=== PATIENT | male | born 1950 | race Caucasian/White ===

== ENCOUNTER 2020-02-22 13:28 | Outpatient (CLI) | payer MEDICARE, SELFPAY ==
[2020-02-22 15:06] LABS: Alanine Aminotransferase 30 U/L (16-63); Albumin Level 3.8 g/dL (3.4-5.0); Alkaline Phosphatase 117 U/L (46-116); Anion Gap 13.7 mmol/L (7-16); Aspartate Amino Transferase 28 U/L (15-37); Bilirubin,Total 0.5 mg/dL (0.00-1.00); Blood Urea Nitrogen 8 mg/dL (7-18); Calcium 9.3 mg/dL (8.5-10.1); Carbon Dioxide 27 mmol/L (21-32); Chloride 97 mmol/L (98-108); Estimated Glomerular Filt Rate > 60; Glucose 106 mg/dL (70-99); Osmolality Calculated 274 mOsm/kg (285-295); Potassium 4.7 mmol/L (3.5-5.1); Sodium 133 mmol/L (136-145); Total Protein 7.4 g/dL (6.4-8.2)
[2020-02-22 15:20] LABS: Prostate Specific Antigen < 0.1 ng/mL (< OR = 4.0)
== END 2020-02-22 13:29 | disposition home or self-care (01) ==
LOC: CHSLAB 13:31
PROVIDERS: PCP Nurse Practitioner Family; Visit Provider Urology
DX: C61 Malignant neoplasm of prostate (principal)
CPT/HCPCS: 36415; 80053; 84153

== ENCOUNTER 2020-05-21 11:25 | Outpatient (CLI) | payer MEDICARE, SELFPAY ==
[2020-05-21 12:37] LABS: Alanine Aminotransferase 35 U/L (16-63); Albumin Level 1.8 g/dL (3.4-5.0); Alkaline Phosphatase 91 U/L (46-116); Anion Gap 8 mmol/L (8-16); Aspartate Amino Transferase 45 U/L (15-37); Bilirubin,Total 0.3 mg/dL (0.00-1.00); Blood Urea Nitrogen 6 mg/dL (7-18); Carbon Dioxide 27 mmol/L (21-32); Chloride 101 mmol/L (98-108); Estimated Glomerular Filt Rate > 60; Glucose 99 mg/dL (70-99); Osmolality Calculated 279 mOsm/kg (285-295); Potassium 4.7 mmol/L (3.5-5.1); Sodium 136 mmol/L (136-145); Total Protein 6.9 g/dL (6.4-8.2)
[2020-05-21 13:00] LABS: Prostate Specific Antigen < 0.1 ng/mL (< OR = 4.0)
== END 2020-05-21 11:26 | disposition home or self-care (01) ==
PROVIDERS: PCP Nurse Practitioner Family; Visit Provider Urology
DX: C61 Malignant neoplasm of prostate (principal)
CPT/HCPCS: 36415; 80053; 84153

== ENCOUNTER 2020-06-20 09:45 | Outpatient (CLI) | payer MEDICARE, SELFPAY ==
[2020-06-20 09:55] LABS: Hematocrit 44.4 % (37.0-46.0); Hemoglobin 14.7 g/dL (12.4-15.3); Mean Corpuscular HGB Conc 33.1 g/dL (32.0-36.0); Mean Corpuscular Hemoglobin 35.7 pg (27.0-31.0); Mean Corpuscular Volume 107.8 fL (78.0-102.0); Platelet Count Result 279 K/mm3 (150-420); Red Blood Count 4.12 M/mm3 (4.70-6.10); Red Cell Distribution Width 12.5 % (11.6-14.4); White Blood Count 6.1 K/mm3 (4.8-10.8)
[2020-06-20 11:03] LABS: Cholesterol 212 mg/dL (0-200); HDL Direct 45 mg/dL (40-60); LDL Cholesterol Calculated 139 mg/dL (<130); Triglycerides 142 mg/dL (0-150)
[2020-06-24 13:54] LABS: Levetiracetam Keppra 15.4 mcg/mL (12.0-46.0)
== END 2020-06-20 09:46 | disposition home or self-care (01) ==
LOC: CHSLAB 09:49
PROVIDERS: PCP Nurse Practitioner Family; Visit Provider Nurse Practitioner Family
DX: G40.909 Epilepsy, unspecified, not intractable, without status epilepticus (principal); I10 Essential (primary) hypertension; Z13.6 Encounter for screening for cardiovascular disorders
CPT/HCPCS: 36415; 80061; 80177; 85027

== ENCOUNTER 2020-08-20 10:52 | Outpatient (CLI) | payer MEDICARE, SELFPAY ==
[2020-08-20 12:51] LABS: Alanine Aminotransferase 30 U/L (16-63); Albumin Level 4.1 g/dL (3.4-5.0); Alkaline Phosphatase 111 U/L (46-116); Anion Gap 6 mmol/L (8-16); Aspartate Amino Transferase 19 U/L (15-37); Bilirubin,Total 0.4 mg/dL (0.00-1.00); Blood Urea Nitrogen 8 mg/dL (7-18); Calcium 9.5 mg/dL (8.5-10.1); Carbon Dioxide 28 mmol/L (21-32); Chloride 102 mmol/L (98-108); Estimated Glomerular Filt Rate > 60; Glucose 98 mg/dL (70-99); Osmolality Calculated 280 mOsm/kg (285-295); Potassium 4.8 mmol/L (3.5-5.1); Sodium 136 mmol/L (136-145); Total Protein 7.2 g/dL (6.4-8.2)
[2020-08-20 13:20] LABS: Prostate Specific Antigen < 0.1 ng/mL (< OR = 4.0)
== END 2020-08-20 10:53 | disposition home or self-care (01) ==
LOC: CHSLAB 10:54
PROVIDERS: PCP Nurse Practitioner Family; Visit Provider Urology
DX: C61 Malignant neoplasm of prostate (principal)
CPT/HCPCS: 36415; 80053; 84153

== ENCOUNTER 2020-11-19 11:10 | Outpatient (CLI) | payer MEDICARE, SELFPAY ==
[2020-11-19 12:17] LABS: Alanine Aminotransferase 40 U/L (16-63); Albumin Level 4.2 g/dL (3.4-5.0); Alkaline Phosphatase 125 U/L (46-116); Anion Gap 10 mmol/L (8-16); Aspartate Amino Transferase 25 U/L (15-37); Bilirubin,Total 0.6 mg/dL (0.00-1.00); Blood Urea Nitrogen 10 mg/dL (7-18); Calcium 9.3 mg/dL (8.5-10.1); Carbon Dioxide 28 mmol/L (21-32); Chloride 98 mmol/L (98-108); Estimated Glomerular Filt Rate > 60; Glucose 102 mg/dL (70-99); Osmolality Calculated 281 mOsm/kg (285-295); Potassium 4.6 mmol/L (3.5-5.1); Sodium 136 mmol/L (136-145); Total Protein 7.3 g/dL (6.4-8.2)
[2020-11-19 12:28] LABS: Prostate Specific Antigen < 0.1 ng/mL (< OR = 4.0)
== END 2020-11-19 11:11 | disposition home or self-care (01) ==
LOC: CHSLAB 11:12
PROVIDERS: PCP Nurse Practitioner Family; Visit Provider Urology
DX: C61 Malignant neoplasm of prostate (principal)
CPT/HCPCS: 36415; 80053; 84153

== ENCOUNTER 2021-02-17 16:37 | Outpatient (CLI) | payer MEDICARE, SELFPAY ==
[2021-02-17 18:14] LABS: Alanine Aminotransferase 25 U/L (16-63); Albumin Level 4.1 g/dL (3.4-5.0); Alkaline Phosphatase 138 U/L (46-116); Anion Gap 17 mmol/L (8-16); Aspartate Amino Transferase 18 U/L (15-37); Bilirubin,Total 0.6 mg/dL (0.00-1.00); Blood Urea Nitrogen 11 mg/dL (7-18); Calcium 9.7 mg/dL (8.5-10.1); Carbon Dioxide 23 mmol/L (21-32); Chloride 95 mmol/L (98-108); Estimated Glomerular Filt Rate > 60; Glucose 97 mg/dL (70-99); Osmolality Calculated 279 mOsm/kg (285-295); Potassium 4.3 mmol/L (3.5-5.1); Sodium 135 mmol/L (136-145); Total Protein 7.3 g/dL (6.4-8.2)
[2021-02-17 18:18] LABS: Prostate Specific Antigen < 0.1 ng/mL (< OR = 4.0)
== END 2021-02-17 16:38 | disposition home or self-care (01) ==
LOC: CHSLAB 16:42
PROVIDERS: PCP Nurse Practitioner Family; Visit Provider Urology
DX: C61 Malignant neoplasm of prostate (principal)
CPT/HCPCS: 36415; 80053; 84153

== ENCOUNTER 2021-06-02 21:28 | Emergency (ER) | payer MEDICARE, SELFPAY ==
--- NOTE | ~2021-06-02 | XR_ITS ---
EXAMINATION: XR chest 1V EXAM DATE: 06/02/2021 22:32 INDICATION: vomiting, dyspnea/weakness . TECHNIQUE: Portable AP frontal chest x-ray was obtained. Comparison is made to prior examination from 2004. FINDINGS: Lung bases are poorly penetrated, difficult to determine if this is from developing airspac e disease, abdominal and/or epicardial fat.. Probable sizable gastroesophageal hiatal hernia. No pneu mothorax or pleural effusion. Mild cardiomegaly. IMPRESSION: 1. Lung bases are poorly penetrated, difficult to determine if this is from developing airspace dise ase, abdominal and/or epicardial fat. 2. Sizable gastroesophageal hiatal hernia. Reviewed, dictated and finalized at location . IMPRESSION: 1. Lung bases are poorly penetrated, difficult to determine if this is from de veloping airspace disease, abdominal and/or epicardial fat. 2. Sizable gastroesophageal hiatal hernia.
--- NOTE | ~2021-06-02 | CT_ITS ---
EXAMINATION: CT brain wo con EXAM DATE: 06/02/2021 22:32 INDICATION: AMS, vomiting weakness/dizziness with AMS. hx of stroke. TECHNIQUE: Spiral CT of the head was performed without contrast. Axial, coronal and sagittal images were reviewed. The dose-length product (DLP) for this examination was 681.00 mGy-cm. The exposure w as tailored according to patient size, and iterative re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 (ASIR) was used as additional dos e reduction technique. Comparison is made to prior examination from 08/10/2018. FINDINGS: There is moderate size old right temporoparietal lobe infarction unchanged. There is no acu te intraparenchymal hemorrhage. No evidence of intraparenchymal brain mass lesion. No evidence of a cute infarction. Please note that initial head CT has limited sensitivity for small or acute infarct ions. There is mild periventricular and subcortical hypodensity, nonspecific but probably related to small vessel ischemic disease. There is moderate prominence of the sulci and ventricles related to cerebral atrophy. There is intracranial carotid arteriosclerosis. There are no extra-axial collect ions. There is no mass effect or midline shift. The orbits are unremarkable. Soft tissue is unrema rkable. The visualized sinuses and mastoid air cells are well aerated. IMPRESSION: 1. No acute intracranial findings. 2. Chronic age related findings. 3. 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 Reviewed, dictated and finalized at location G.
[2021-06-02 21:30] VITALS: BP 98/52; PULSE 72; RESP 20; O2SAT 98
--- NOTE | 2021-06-02 21:37 | ED.NAVMDI ---
HPI - Nausea/Vomiting/Diarrhea General Chief complaint: Nausea/Vomiting/Diarrhea Stated complaint: AMB Time Seen by Provider: 06/02/21 21:32 Source: patient and EMS Mode of arrival: EMS Limitations: altered mental status and clinical condition History of Present Illness HPI Narrative: 70-year-old man with a history of daily alcohol use, hypertension, seizure disorder and prostatic cancer comes in today by EMS complaining of vomiting that started approximately 3 hours ago. Patient states he has some pain in his abdomen but can not be more specific. He denies chest pain,, cough, cold symptoms, fever and diarrhea. Patient states that his went for surgery today and that when she has gone he gets nervous and has vomiting. MD elicited complaint: nausea, vomiting and abdominal pain Pertinent past history: alcohol abuse Onset (ago): hour(s) (3) Description of vomiting: food contents and watery Associated nausea: Yes Associated abdominal pain: Yes Severity: moderate Quality: other ( nausea ) Exacerbating factors: none Relieving factors: none Associated symptoms: shortness of breath and anxiety Treatment prior to arrival: other (Zofran 4 IV) Related Data Home Medications Medication Instructions Recorded Confirmed aspirin 81 mg tablet,delayed 81 mg PO DAILY 06/19/20 06/02/21 release clopidogrel 75 mg PO DAILY 06/02/21 06/02/21 levetiracetam 500 mg PO BID 06/02/21 06/02/21 lisinopril 20 mg PO DAILY 06/02/21 06/02/21 Allergies Allergy/AdvReac Type Severity Reaction Status Date / Time No Known Allergies Allergy Mild Verified 06/02/21 21:36 Review of Systems Review of Systems: All systems reviewed & are unremarkable except as noted in HPI and below Constitutional: Constitutional: Denies chills and Denies fever(s) Eyes: Eyes: Denies change in vision and Denies photophobia ENT: Denies nasal congestion and Denies sore throat Cardiovascular: Cardiovascular: Denies chest pain and Denies radiating jaw, neck or arm pain Respiratory: Respiratory: Denies cough and Reports dyspnea Gastrointestinal: Gastrointestinal: Reports abdominal pain, Denies diarrhea, Reports nausea and Reports vomiting Genitourinary: Genitourinary: Denies dysuria and Denies urinary frequency Musculoskeletal: Musculoskeletal: Denies back pain, Reports arthralgias (hips) and Denies joint swelling Neurologic: Denies vertigo, Denies dizziness, Denies syncope, Denies focal weakness, Denies numbness and Reports weakness Hematologic/Lymphatic: Hematologic/Lymphatic: Denies easy bleeding and Denies easy bruising Allergic/Immunologic: Allergic/Immunologic: Denies lip swelling and Denies throat swelling [facility] Past Medical History Medical History Elevated PSA HTN (hypertension) Overweight Psoriasis Seizure disorder Surgical History Surgical History History of hernia repair Family History Family History Other Family history of malignant neoplasm Social History Social History (Updated 06/02/21 @ 23:54 by Angel Lee MD) Smoking status: Former smoker Tobacco type: cigarettes Smoking end date: 06/29/01 Alcohol intake: current Alcohol use details: Daily Substance use: never 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 HENMT: Head: normal to inspection Ears: Abnormal EAC present other (EACs scaly bilaterally) Face and sinus: normal facial exam Mouth: Yes moist mucous membranes Throat: posterior oropharynx normal Eyes: Cornea: corneas normal Pupils: Equal, round and reactive pupils present EOM: EOMs intact bilaterally Resp: Effort & Inspectio
--- NOTE | 2021-06-02 21:41 | ECG_ITS ---
Measurements Intervals [place] Rate: 70 P: [place]: 0 QRS: 10 QRSD: 107 T: 44 QT: 413 QTc: 446 Interpretive Statements SINUS RHYTHM LOW QRS VOLTAGE IN PRECORDIAL LEADS INCOMPLETE RIGHT BUNDLE BRANCH BLOCK BASELINE ARTIFACT- I, II, III, AVR, AVL, AVF BORDERLINE ECG Electronically Signed On 06-03-2021 8:22:49 CDT by Soren Hanson D.O.
[2021-06-02] MEDS: PROCHLORPERAZINE EDISYLATE 10 MG/2 ML VIAL IV PUSH (21:51)
[2021-06-02 22:04] LABS: Basophils Absolute Auto 0.04 K/mm3 (0.00-0.10); Basophils Percent Auto 0.5 % (0.0-1.0); Eosinophils Absolute Auto 0.13 K/mm3 (0.02-0.50); Eosinophils Percent Auto 1.7 % (1.0-6.0); Hematocrit 34.4 % (37.0-46.0); Hemoglobin 11.8 g/dL (12.4-15.3); Immature Granulocyte Absolute 0.06 K/mm3 (0.00-0.00); Immature Granulocyte Percent A 0.8 % (0.0-0.0); Lymphocytes Absolute Auto 1.95 K/mm3 (1.10-4.50); Lymphocytes Percent Auto 25.2 % (18.0-42.0); Mean Corpuscular HGB Conc 34.3 g/dL (32.0-36.0); Mean Corpuscular Hemoglobin 35.3 pg (27.0-31.0); Mean Platelet Volume 9.3 fl (8.7-11.0); Monocytes Percent Auto 7.8 % (2.0-11.0); Platelet Count Result 329 K/mm3 (150-420); Red Blood Count 3.34 M/mm3 (4.70-6.10); Red Cell Distribution Width 12.7 % (11.6-14.4); White Blood Count 7.7 K/mm3 (4.8-10.8)
[2021-06-02] MEDS: THIAMINE HCL INJ 100 MG, FOLIC ACID INJ 1 MG, MULTIVITAMINS-12 INJ VIAL 1 5 ML, MULTIVI... 500 MG IV CONT (22:05)
[2021-06-02 22:19] LABS: INR 0.9; Partial Thromboplastin Time 24.1 SEC (23.90-30.70)
[2021-06-02 22:27] LABS: Lactic Acid Reflex 4.5 mmol/L (0.4-2.0)
[2021-06-02 22:31] LABS: Alanine Aminotransferase 25 U/L (16-63); Albumin Level 3.8 g/dL (3.4-5.0); Alkaline Phosphatase 90 U/L (46-116); Anion Gap 19 mmol/L (8-16); Aspartate Amino Transferase 14 U/L (15-37); Bilirubin,Total 0.3 mg/dL (0.00-1.00); Blood Urea Nitrogen 9 mg/dL (7-18); Calcium 8.7 mg/dL (8.5-10.1); Carbon Dioxide 19 mmol/L (21-32); Chloride 96 mmol/L (98-108); Creatine Kinase 47 U/L (39-308); Estimated CRCL calculation 97 ml/min; Estimated Glomerular Filt Rate > 60; Ethanol 91 mg/dL (0-6); Glucose 113 mg/dL (70-99); Osmolality Calculated 277 mOsm/kg (285-295); Potassium 3.7 mmol/L (3.5-5.1); Sodium 134 mmol/L (136-145); Thyroid Stimulating Hormone 2.61 uIU/mL (0.36-3.74); Total Protein 6.9 g/dL (6.4-8.2); Troponin I 5.1 ng/L (0.00-60.4)
[2021-06-02 22:36] VITALS: PULSE 85
[2021-06-02 22:52] VITALS: BP 117/53; PULSE 70; RESP 20; TEMP 36.1; O2SAT 100
[2021-06-02 23:07] LABS: Add Urine Microscopic? YES; Appearance Urine Clear (Clear); Bilirubin Urine Negative (Negative); Blood Urine Negative (Negative); Color Urine Yellow (Yellow); Glucose Urine UA Negative (Negative); Ketones Urine 2+ (Negative); Leukocyte Esterase Ur Negative LEU/UL (Negative); Nitrate Urine Negative (Negative); Protein Urine Negative (Negative); Specific Grav Ur 1.025 (1.010-1.020); Urobilinogen Urine 0.2 mg/dL (0.2-1.0)
[2021-06-02 23:13] LABS: Bacteria Urine Trace /hpf; Mucus Urine Moderate /lpf; RBC Urine 0-2 /hpf (0-2); Squamous Epithelial Cell Urine Rare /hpf (Few); WBC Urine 0-3 /hpf (0-3)
[2021-06-02 23:14] LABS: Amphetamine Screen Urine Negative (Negative); Barbiturate Screen Urine Negative (Negative); Benzodiazepines Screen Urine Negative (Negative); Cannabinoid Screen Urine Negative (Negative); Cocaine Screen Urine Negative (Negative); Methadone Screen Urine Negative (Negative); Opiate Screen Urine Negative (Negative); Phencyclidine Screen Urine Negative (Negative)
[2021-06-02 23:45] LABS: SARS-CoV-2 RNA PCR Negative (Negative)
[2021-06-03] VITALS: BP 108/58; PULSE 68; RESP 18; TEMP 35.5; O2SAT 98
[2021-06-03 01:01] LABS: Reflex Lactic Acid Yes or No Add Lactic
== END 2021-06-03 00:21 | disposition home or self-care (01) ==
PROVIDERS: Emergency Provider Emergency Medicine; PCP Nurse Practitioner Family
DX: F41.9 Anxiety disorder, unspecified (principal); F10.20 Alcohol dependence, uncomplicated; Z87.891 Personal history of nicotine dependence; I10 Essential (primary) hypertension; Z20.822 Contact with and (suspected) exposure to COVID-19
CPT/HCPCS: 36415; 70450; 71045; 80053; 80307; 81001; 82550; 83605; 84443; 84484; 85025; 85610; 85730; 87040; 93005; 96365; 96366; 96375; 99283; 99284; C9803; J0780; J3411; J3475; J7120; U0003; U0005

== ENCOUNTER 2021-09-23 16:35 | Outpatient (CLI) | payer MEDICARE, SELFPAY ==
[2021-09-23 17:31] LABS: Alanine Aminotransferase 24 U/L (16-63); Alkaline Phosphatase 107 U/L (46-116); Anion Gap 8 mmol/L (8-16); Aspartate Amino Transferase 13 U/L (15-37); Bilirubin,Total 0.4 mg/dL (0.00-1.00); Blood Urea Nitrogen 9 mg/dL (7-18); Carbon Dioxide 29 mmol/L (21-32); Chloride 95 mmol/L (98-108); Estimated Glomerular Filt Rate > 60; Glucose 96 mg/dL (70-99); Osmolality Calculated 272 mOsm/kg (285-295); Potassium 4.2 mmol/L (3.5-5.1); Sodium 132 mmol/L (136-145); Total Protein 7.2 g/dL (6.4-8.2)
[2021-09-23 17:32] LABS: Prostate Specific Antigen < 0.1 ng/mL (< OR = 4.0)
== END 2021-09-23 16:36 | disposition home or self-care (01) ==
LOC: CHSLAB 16:37
PROVIDERS: PCP Nurse Practitioner Family; Visit Provider Urology
DX: C61 Malignant neoplasm of prostate (principal)
CPT/HCPCS: 36415; 80053; 84153

== ENCOUNTER 2021-11-06 12:40 | Outpatient (CLI) | payer MEDICARE, SELFPAY ==
[2021-11-06 12:55] LABS: Basophils Absolute Auto 0.02 K/mm3 (0.00-0.10); Basophils Percent Auto 0.2 % (0.0-1.0); Eosinophils Absolute Auto 0.12 K/mm3 (0.02-0.50); Eosinophils Percent Auto 1.4 % (1.0-6.0); Hematocrit 39.3 % (37.0-46.0); Hemoglobin 12.8 g/dL (12.4-15.3); Immature Granulocyte Absolute 0.04 K/mm3 (0.00-0.00); Immature Granulocyte Percent A 0.5 % (0.0-0.0); Lymphocytes Absolute Auto 1.18 K/mm3 (1.10-4.50); Lymphocytes Percent Auto 13.3 % (18.0-42.0); Mean Corpuscular HGB Conc 32.6 g/dL (32.0-36.0); Mean Corpuscular Hemoglobin 34.8 pg (27.0-31.0); Mean Corpuscular Volume 106.8 fL (78.0-102.0); Mean Platelet Volume 8.9 fl (8.7-11.0); Monocytes Absolute Auto 0.67 K/mm3 (0.10-0.90); Monocytes Percent Auto 7.6 % (2.0-11.0); Neutrophils Absolute Auto 6.8 K/mm3 (1.7-7.2); Platelet Count Result 361 K/mm3 (150-420); Red Blood Count 3.68 M/mm3 (4.70-6.10); Red Cell Distribution Width 12.5 % (11.6-14.4); White Blood Count 8.9 K/mm3 (4.8-10.8)
[2021-11-06 13:04] LABS: Add Urine Microscopic? YES; Appearance Urine Clear (Clear); Bilirubin Urine Negative (Negative); Blood Urine Negative (Negative); Color Urine Yellow (Yellow); Glucose Urine UA Negative (Negative); Ketones Urine Trace (Negative); Leukocyte Esterase Ur Negative (Negative); Nitrate Urine Negative (Negative); Protein Urine Negative (Negative); Specific Grav Ur >= 1.030 (1.010-1.020); Urobilinogen Urine 0.2 mg/dL (0.2-1.0); pH Urine 5.5 (5.0-8.0)
[2021-11-06 13:14] LABS: Bacteria Urine Trace /hpf; Mucus Urine Rare /lpf; RBC Urine None seen /hpf (0-2); WBC Urine None seen /hpf (0-3)
[2021-11-06 13:22] LABS: Alanine Aminotransferase 21 U/L (16-63); Albumin Level 4.1 g/dL (3.4-5.0); Alkaline Phosphatase 124 U/L (46-116); Anion Gap 11 mmol/L (8-16); Aspartate Amino Transferase 14 U/L (15-37); Bilirubin,Total 0.3 mg/dL (0.00-1.00); Blood Urea Nitrogen 10 mg/dL (7-18); Calcium 9.1 mg/dL (8.5-10.1); Carbon Dioxide 27 mmol/L (21-32); Chloride 98 mmol/L (98-108); Estimated Glomerular Filt Rate > 60; Glucose 101 mg/dL (70-99); Osmolality Calculated 281 mOsm/kg (285-295); Potassium 4.7 mmol/L (3.5-5.1); Sodium 136 mmol/L (136-145); Total Protein 7.2 g/dL (6.4-8.2)
== END 2021-11-06 12:41 | disposition home or self-care (01) ==
LOC: CHSLAB 12:44
PROVIDERS: PCP Nurse Practitioner Family
DX: L40.0 Psoriasis vulgaris (principal)
CPT/HCPCS: 36415; 80053; 81001; 85025

== ENCOUNTER 2022-01-01 12:50 | Outpatient (CLI) | payer MEDICARE, SELFPAY ==
[2022-01-01 13:08] LABS: Add Urine Microscopic? NO; Appearance Urine Clear (Clear); Bilirubin Urine Negative (Negative); Blood Urine Negative (Negative); Color Urine Light Yellow (Yellow); Glucose Urine UA Negative (Negative); Ketones Urine Negative (Negative); Leukocyte Esterase Ur Negative (Negative); Nitrate Urine Negative (Negative); Protein Urine Negative (Negative); Urobilinogen Urine 0.2 mg/dL (0.2-1.0)
[2022-01-01 13:09] LABS: Basophils Absolute Auto 0.06 K/mm3 (0.00-0.10); Basophils Percent Auto 0.8 % (0.0-1.0); Eosinophils Absolute Auto 0.23 K/mm3 (0.02-0.50); Eosinophils Percent Auto 3.1 % (1.0-6.0); Hematocrit 37.4 % (37.0-46.0); Hemoglobin 11.9 g/dL (12.4-15.3); Immature Granulocyte Absolute 0.04 K/mm3 (0.00-0.00); Immature Granulocyte Percent A 0.5 % (0.0-0.0); Lymphocytes Absolute Auto 1.27 K/mm3 (1.10-4.50); Lymphocytes Percent Auto 17.1 % (18.0-42.0); Mean Corpuscular HGB Conc 31.8 g/dL (32.0-36.0); Mean Corpuscular Hemoglobin 34.2 pg (27.0-31.0); Mean Corpuscular Volume 107.5 fL (78.0-102.0); Mean Platelet Volume 9.1 fl (8.7-11.0); Monocytes Absolute Auto 0.71 K/mm3 (0.10-0.90); Monocytes Percent Auto 9.6 % (2.0-11.0); Neutrophils Absolute Auto 5.1 K/mm3 (1.7-7.2); Neutrophils Percent Auto 68.9 % (50.0-70.0); Platelet Count Result 361 K/mm3 (150-420); Red Blood Count 3.48 M/mm3 (4.70-6.10); Red Cell Distribution Width 13.4 % (11.6-14.4); White Blood Count 7.4 K/mm3 (4.8-10.8)
[2022-01-01 13:28] LABS: Alanine Aminotransferase 18 U/L (16-63); Alkaline Phosphatase 123 U/L (46-116); Anion Gap 6 mmol/L (8-16); Aspartate Amino Transferase 28 U/L (15-37); Bilirubin,Total 0.4 mg/dL (0.00-1.00); Blood Urea Nitrogen 8 mg/dL (7-18); Calcium 9.3 mg/dL (8.5-10.1); Carbon Dioxide 28 mmol/L (21-32); Chloride 100 mmol/L (98-108); Estimated Glomerular Filt Rate > 60; Glucose 100 mg/dL (70-99); Osmolality Calculated 276 mOsm/kg (285-295); Potassium 4.6 mmol/L (3.5-5.1); Sodium 134 mmol/L (136-145); Total Protein 7.6 g/dL (6.4-8.2)
== END 2022-01-01 12:51 | disposition home or self-care (01) ==
LOC: CHSLAB 12:54
PROVIDERS: PCP Nurse Practitioner Family
DX: L40.9 Psoriasis, unspecified (principal)
CPT/HCPCS: 36415; 80053; 81003; 85025

== ENCOUNTER 2022-01-18 12:28 | Outpatient (CLI) | payer MEDICARE, SELFPAY ==
--- NOTE | 2022-01-18 12:35 | ECHO_ITS ---
Patient Info Name: Malcolm Patel Age: 71 years : 1950 Gender: Male Ht: 70 in Wt: 220 lbs BSA: 2.25 m2 HR: 80 bpm BP: 142 / 85 mmHg Heart Rhythm: Sinus Rhythm Technical Quality: Fair Exam Date: 01/18/2022 12:21 PM Exam Location: [facility] Patient Status: Outpatient Admit Date: 01/18/2022 Staff Ordering Physician: Korin Guillen NP Vp Clinical: Celia Don RDCS Attending Provider: Korin Guillen NP Referring Physician: Mindy LANCASTER; Exam Type: CA echo doppler color flow Study Info Indications - Localized edema Complete two-dimensional, color flow and Doppler transthoracic echocardiogram is performed. Summary 1. Complete two-dimensional, color flow and Doppler transthoracic echocardiogram is performed. 2. Left ventricular chamber dimension is normal. 3. Left ventricular systolic function is normal, estimated at 55-60%. 4. The left ventricular diastolic function is grade I diastolic dysfunction. 5. E/e' 9 is minimally elevated. 6. The aortic valve is not well visualized. Cannot determine number of aortic valve leaflets. 7. There is moderate aortic valve sclerosis. 8. There is moderate aortic valve stenosis based on a peak velocity of 280 cm/s, mean gradient of 12 mmHg, and aortic valve area of 1.4 cm2. 9. The mitral valve has mildly calcified annulus. 10. No pulmonary hypertension, estimated pulmonary arterial systolic pressure is 26 mmHg. 11. There is trivial pericardial effusion. Left Ventricle E/e' 9 is minimally elevated. Left ventricular chamber dimension is normal. Left ventricular systolic function is normal, estimated at 55-60%. The left ventricular diastolic function is grade I diastolic dysfunction. Right Ventricle Right ventricular systolic function is normal and with normal TAPSE 3.4 cm. Right ventricular chamber dimension is normal. Left Atria Left atrial chamber dimension is normal. Right Atria Right atrial chamber dimension is normal. Aortic Valve The aortic valve is not well visualized. Cannot determine number of aortic valve leaflets. There is moderate aortic valve stenosis based on a peak velocity of 280 cm/s, mean gradient of 12 mmHg, and aortic valve area of 1.4 cm2. There is moderate aortic valve sclerosis. There is no aortic valve regurgitation. Pulmonic Valve There is no pulmonic regurgitation. Mitral Valve The mitral valve has mildly calcified annulus. There is no mitral valve stenosis. There is no mitral valve regurgitation. Tricuspid Valve There is no tricuspid valve regurgitation. No pulmonary hypertension, estimated pulmonary arterial systolic pressure is 26 mmHg. Pericardium/Pleural There is trivial pericardial effusion. Inferior Vena Cava Normal inferior vena cava with >50% collapse upon inspiration consistent with normal right atrial pressure, 5 mmHg. Aorta The aortic root size at the sinus of Valsalva is not well visualized. Left Ventricular Outflow Tract Name Value Normal LVOT 2D LVOT Diameter 2.0 cm LVOT Doppler LVOT Peak Velocity 98 cm/s LVOT Peak Gradient
== END 2022-01-18 12:29 | disposition home or self-care (01) ==
LOC: CHSIMG 12:29
PROVIDERS: PCP Nurse Practitioner Family; Visit Provider Nurse Practitioner Family
DX: R94.31 Abnormal electrocardiogram [ECG] [EKG] (principal); R60.0 Localized edema; Z86.73 Personal history of transient ischemic attack (TIA), and cerebral infarction without residual deficits; I35.0 Nonrheumatic aortic (valve) stenosis
CPT/HCPCS: 93306

== ENCOUNTER 2022-01-19 08:21 | Outpatient (CLI) | payer MEDICARE, SELFPAY ==
[2022-01-19 08:54] LABS: Cholesterol 146 mg/dL (0-200); HDL Direct 50 mg/dL (40-60); LDL Cholesterol Calculated 76 mg/dL (<130); Triglycerides 99 mg/dL (0-150)
== END 2022-01-19 08:22 | disposition home or self-care (01) ==
LOC: CHSLAB 08:24
PROVIDERS: PCP Nurse Practitioner Family; Visit Provider Nurse Practitioner Family
DX: E78.5 Hyperlipidemia, unspecified (principal)
CPT/HCPCS: 36415; 80061

== ENCOUNTER 2022-01-22 15:06 | Outpatient (CLI) | payer MEDICARE, SELFPAY ==
[2022-01-22 15:25] LABS: Basophils Absolute Auto 0.03 K/mm3 (0.00-0.10); Basophils Percent Auto 0.4 % (0.0-1.0); Eosinophils Absolute Auto 0.18 K/mm3 (0.02-0.50); Eosinophils Percent Auto 2.3 % (1.0-6.0); Hematocrit 34.9 % (37.0-46.0); Hemoglobin 11.3 g/dL (12.4-15.3); Immature Granulocyte Absolute 0.01 K/mm3 (0.00-0.00); Immature Granulocyte Percent A 0.1 % (0.0-0.0); Lymphocytes Absolute Auto 1.29 K/mm3 (1.10-4.50); Lymphocytes Percent Auto 16.8 % (18.0-42.0); Mean Corpuscular HGB Conc 32.4 g/dL (32.0-36.0); Mean Corpuscular Hemoglobin 34.9 pg (27.0-31.0); Mean Corpuscular Volume 107.7 fL (78.0-102.0); Monocytes Absolute Auto 0.44 K/mm3 (0.10-0.90); Monocytes Percent Auto 5.7 % (2.0-11.0); Neutrophils Absolute Auto 5.7 K/mm3 (1.7-7.2); Neutrophils Percent Auto 74.7 % (50.0-70.0); Platelet Count Result 314 K/mm3 (150-420); Red Blood Count 3.24 M/mm3 (4.70-6.10); Red Cell Distribution Width 12.8 % (11.6-14.4); White Blood Count 7.7 K/mm3 (4.8-10.8)
[2022-01-22 16:38] LABS: Alanine Aminotransferase 26 U/L (16-63); Albumin Level 4.2 g/dL (3.4-5.0); Alkaline Phosphatase 110 U/L (46-116); Anion Gap 7 mmol/L (8-16); Aspartate Amino Transferase 19 U/L (15-37); Bilirubin,Total 0.7 mg/dL (0.00-1.00); Blood Urea Nitrogen 17 mg/dL (7-18); Calcium 9.4 mg/dL (8.5-10.1); Carbon Dioxide 28 mmol/L (21-32); Chloride 99 mmol/L (98-108); Estimated Glomerular Filt Rate > 60; Glucose 89 mg/dL (70-99); Osmolality Calculated 278 mOsm/kg (285-295); Potassium 4.5 mmol/L (3.5-5.1); Sodium 134 mmol/L (136-145); Total Protein 7.2 g/dL (6.4-8.2)
== END 2022-01-22 15:07 | disposition home or self-care (01) ==
LOC: CHSLAB 15:11
PROVIDERS: PCP Nurse Practitioner Family
DX: Z79.899 Other long term (current) drug therapy (principal)
CPT/HCPCS: 36415; 80053; 85025

== ENCOUNTER 2022-03-17 16:35 | Outpatient (CLI) | payer MEDICARE, SELFPAY ==
[2022-03-17 18:16] LABS: Alanine Aminotransferase 16 U/L (16-63); Alkaline Phosphatase 117 U/L (46-116); Anion Gap 8 mmol/L (8-16); Aspartate Amino Transferase 14 U/L (15-37); Bilirubin,Total 0.3 mg/dL (0.00-1.00); Blood Urea Nitrogen 9 mg/dL (7-18); Carbon Dioxide 27 mmol/L (21-32); Chloride 97 mmol/L (98-108); Estimated Glomerular Filt Rate > 60; Glucose 80 mg/dL (70-99); Osmolality Calculated 271 mOsm/kg (285-295); Potassium 4.5 mmol/L (3.5-5.1); Sodium 132 mmol/L (136-145); Total Protein 6.8 g/dL (6.4-8.2)
[2022-03-17 18:26] LABS: Prostate Specific Antigen < 0.1 ng/mL (< OR = 4.0)
== END 2022-03-17 16:36 | disposition home or self-care (01) ==
LOC: CHSLAB 16:38
PROVIDERS: PCP Nurse Practitioner Family; Visit Provider Urology
DX: C61 Malignant neoplasm of prostate (principal)
CPT/HCPCS: 36415; 80053; 84153

== ENCOUNTER 2022-07-22 15:35 | Emergency (ER) | payer MEDICARE, SELFPAY ==
[2022-07-22] VITALS (40 sets, daily range): BP systolic 73–122; BP diastolic 47–101; PULSE 66–87; RESP 10–24; TEMP 36.1–36.8; O2SAT 94–100
--- NOTE | 2022-07-22 15:46 | ED.GENADULT ---
HPI - General Adult General Chief complaint: Syncope Stated complaint: Amb History of Present Illness HPI narrative: Malcolm is a 71M with a PMH of prior CVA w/o deficit, HLD, psoriasis, HTN and elevated PSA that was brought in by EMS with lightheadedness and dizziness as well as nausea and vomiting. He feels very week and is quite pale. Per his he was sitting down, eating pie, when all of a sudden he became very pale and nauseated. They his eyes closed and he may have passed out for a quick second. He then woke and was confused, pale, weak, and dry heaving. He denied any ravi CP or dyspnea. Related Data Home Medications Medication Instructions Recorded Confirmed aspirin 81 mg tablet,delayed 81 mg PO DAILY 06/19/20 08/12/22 release (Adult Aspirin Regimen) folic acid 1 mg tablet 1 mg PO DAILY 07/27/22 08/12/22 pantoprazole 40 mg tablet,delayed 40 mg PO QAM 07/27/22 08/12/22 release thiamine HCl (vitamin B1) 100 mg 100 mg PO DAILY 07/27/22 08/12/22 tablet (Vitamin B-1) Allergies Allergy/AdvReac Type Severity Reaction Status Date / Time No Known Allergies Allergy Mild Verified 08/12/22 17:27 Review of Systems Review of Systems: All systems reviewed & are unremarkable except as noted in HPI and below PMFSH Past Medical History Medical History Abnormal EKG Elevated PSA HTN (hypertension) Overweight Psoriasis Seizure disorder Surgical History Surgical History History of hernia repair Family History Family History Other Family history of malignant neoplasm Social History Social History Smoking status: Former smoker Tobacco type: cigarettes Smoking end date: 06/29/01 Alcohol intake: former Alcohol use details: Daily Substance use: never Lack of Transportation: No Lack of Food: Never True Current Housing: I Have Housing Concerned About Future Housing: No Difficulty Paying Gas/Electric Bills: No Difficulty Paying for Meds: No Currently Unemployed: No Education: High School Diploma/GED Difficulty w/ Childcare or Family Care: No 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, 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, 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 Gender identity (if verbalized by the patient): Male Spiritual care concerns: No Exam Const: General: confusion, diaphoretic and ill appearing acutely HENMT: Head: normal to inspection Ears: external ears normal Eyes: Conjunctivae: conjunctivae normal Pupils: Equal, round and reactive pupils present Neck: Neck: normal visual inspection Chest: Chest palpation & inspection: normal inspection of the chest Resp: Effort & Inspection: labored and uses accessory muscles Auscultation: clear to auscultation bilaterally Cardio: Rate: regular rate Rhythm: regular rhythm Heart sounds: Murmur heart sound present GI: Other: normal BS, Not TTP, no guarding or rebound tenderness Skin: General skin exam: pallor Neuro: General: patient oriented x3 and moves all extremities Other: Slightly confused and had trouble with a conversation Extrem: Other: no deformity Psych: Mental Status: mental status grossly normal Course Course Emergency Course: A second IV was started and fluids were started given the hypotension. He was given 2L of NS. His sugar was low at 48 so he was given 200 of D51/2NS. After the glucose his sugar came up to 106 and his BP improved. [facility] was contacted for transfer at [address] Perez of [facility] at 1750 that accepted the patient for transfer. However, this was the wrong provider so I gave checkout to Dr. Ledesma who recommended repeat lactate and replenishing the potassium. He was transferred for a higher level of care and endocrinology consult Vital Signs Vital sign
[2022-07-22] MEDS: SODIUM CHLORIDE 0.9% IV 1,000 ML 999 ML IV CONT (15:51)
--- NOTE | 2022-07-22 15:51 | ECG_ITS ---
Measurements Intervals [place] Rate: 74 P: -40 DC: 200 QRS: 35 QRSD: 103 T: 54 QT: 395 QTc: 441 Interpretive Statements SINUS RHYTHM INCOMPLETE RIGHT BUNDLE BRANCH BLOCK LOW QRS VOLTAGE IN PRECORDIAL LEADS BASELINE ARTIFACT- I, II, III, AVR, AVL ,AVF BORDERLINE ECG COMPARED TO ECG 06/02/2021 21:47:59 NO SIGNIFICANT CHANGES Electronically Signed On 07-23-2022 10:01:42 STRUCTURAL BIOLOGIST by Soren Hanson D.O.
[2022-07-22 15:55] LABS: Basophils Absolute Auto 0.02 K/mm3 (0.00-0.10); Basophils Percent Auto 0.2 % (0.0-1.0); Eosinophils Absolute Auto 0.04 K/mm3 (0.02-0.50); Eosinophils Percent Auto 0.5 % (1.0-6.0); Immature Granulocyte Absolute 0.07 K/mm3 (0.00-0.00); Immature Granulocyte Percent A 0.8 % (0.0-0.0); Lymphocytes Absolute Auto 1.88 K/mm3 (1.10-4.50); Lymphocytes Percent Auto 21.3 % (18.0-42.0); Mean Corpuscular HGB Conc 33.3 g/dL (32.0-36.0); Mean Corpuscular Hemoglobin 35.2 pg (27.0-31.0); Mean Corpuscular Volume 105.5 fL (78.0-102.0); Mean Platelet Volume 8.5 fl (8.7-11.0); Monocytes Absolute Auto 1.15 K/mm3 (0.10-0.90); Neutrophils Absolute Auto 5.7 K/mm3 (1.7-7.2); Neutrophils Percent Auto 64.2 % (50.0-70.0); Platelet Count Result 418 K/mm3 (150-420); Red Blood Count 2.56 M/mm3 (4.70-6.10); Red Cell Distribution Width 13.6 % (11.6-14.4); White Blood Count 8.8 K/mm3 (4.8-10.8)
[2022-07-22 16:06] LABS: INR 0.9; Prothrombin Time 9.9 Seconds (9.50-12.10)
[2022-07-22 16:17] LABS: Alanine Aminotransferase 20 U/L (16-63); Albumin Level 3.3 g/dL (3.4-5.0); Alkaline Phosphatase 83 U/L (46-116); Anion Gap 13 mmol/L (8-16); Aspartate Amino Transferase < 10 U/L (15-37); Bilirubin,Total 0.3 mg/dL (0.00-1.00); Blood Urea Nitrogen 22 mg/dL (7-18); Calcium 7.9 mg/dL (8.5-10.1); Carbon Dioxide 24 mmol/L (21-32); Chloride 97 mmol/L (98-108); Estimated Glomerular Filt Rate > 60; Ethanol 52 mg/dL (0-6); NT Pro B Type Natriuretic Pept 503 pg/mL (0-125); Osmolality Calculated 278 mOsm/kg (285-295); Potassium 3.2 mmol/L (3.5-5.1); Sodium 134 mmol/L (136-145); Total Protein 6.5 g/dL (6.4-8.2); Troponin I 5.2 ng/L (0.00-60.4)
[2022-07-22 16:20] LABS: Glucose 48 mg/dL (70-99)
[2022-07-22 16:23] LABS: Glucose Point of Care 56 mg/dl (65-105)
[2022-07-22 16:30] LABS: SARS-CoV-2 RNA PCR Negative (Negative)
[2022-07-22] MEDS: DEXTROSE 5%/0.45% SOD CHL 1,000 ML 200 ML (16:33)
[2022-07-22] MEDS: ONDANSETRON INJ 4 MG/2 ML VIAL IV PUSH (16:45)
[2022-07-22 16:49] LABS: Glucose Point of Care 106 mg/dl (65-105)
--- NOTE | 2022-07-22 17:00 | PC.NURSE ---
per erp continue D5 .45%NS at 100ml/hr for remainder of 800ml in bag.
[2022-07-22 18:36] LABS: Glucose Point of Care 148 mg/dl (65-105)
[2022-07-22 18:39] LABS: Reflex Lactic Acid Yes or No Add Lactic
--- NOTE | 2022-07-22 19:00 | PC.NURSE ---
Care resumed, pt sitting on BSC, had small BM, assisted back to bed per , tolerated well. Pt placed back on monitor, showing SR, VSS, Pt c/o feeling weak when getting up.
[2022-07-22 19:07] LABS: Lactic Acid 1.5 mmol/L (0.4-2.0)
[2022-07-22 19:07] LABS: Hemoglobin A1C 5.7 % (<5.7)
[2022-07-22] MEDS: KCL 20 MEQ/SW 100 ML 100 ML 50 MEQ IVPB (19:09)
[2022-07-22] MEDS: POTASSIUM CHLORIDE 20 MEQ TABLET (19:10)
[2022-07-22 19:39] LABS: Glucose Point of Care 120 mg/dl (65-105)
--- NOTE | 2022-07-22 19:47 | PC.NURSE ---
Call to [facility], report given to
--- NOTE | 2022-07-22 19:47 | PC.NURSE ---
Call back to [facility], report given to [facility] for pt transfer. Bed received, Pts. BS is 120 at this time, VSS. Call paged to [facility] for pt transfer.
== END 2022-07-22 20:20 | disposition short-term general hospital (02) ==
PROVIDERS: Emergency Provider Family Medicine; PCP Nurse Practitioner Family
DX: E16.2 Hypoglycemia, unspecified (principal); I10 Essential (primary) hypertension; R97.20 Elevated prostate specific antigen [PSA]; Z87.891 Personal history of nicotine dependence; G40.909 Epilepsy, unspecified, not intractable, without status epilepticus; Z20.822 Contact with and (suspected) exposure to COVID-19
CPT/HCPCS: 36415; 80053; 80307; 82948; 83036; 83605; 83735; 83880; 84443; 84484; 85025; 85610; 87040; 93005; 96361; 96365; 96375; 99285; A9270; J2405; J3480; J7030; U0003; U0005

== ENCOUNTER 2022-07-31 09:56 | Outpatient (CLI) | payer MEDICARE, SELFPAY ==
--- NOTE | ~2022-07-31 | MR_ITS ---
EXAMINATION: MR abdomen wo/w con DATE: 07/31/2022 12:15 INDICATION: Hypoglycemia. Insulinoma. TECHNIQUE: Magnetic resonance imaging (MRI) of the abdomen was performed without and with 20 mL Multi Elvin intravenous contrast. COMPARISON: CT abdomen and pelvis 08/04/2018 FINDINGS: The liver, spleen, gallbladder, pancreas, and adrenal glands are normal. There are cysts in the kidne ys measuring up to 10 mm on the right. There are no dilated loops of bowel. There are no pathological ly enlarged lymph nodes. There is no free intraperitoneal fluid. IMPRESSION: 1. No evidence of an insulinoma. Reviewed, dictated and finalized at location E. CIATE PROFESSOR OF PHILOSOPHY
== END 2022-07-31 09:57 | disposition home or self-care (01) ==
LOC: CHSIMG 09:57
PROVIDERS: PCP Family Medicine; Visit Provider Family Medicine
DX: E16.2 Hypoglycemia, unspecified (principal)
CPT/HCPCS: 74183; A9577

== ENCOUNTER 2022-08-12 15:43 | Observation (INO) | payer MEDICARE, SELFPAY ==
[2022-08-12] VITALS (41 sets, daily range): BP systolic 74–162; BP diastolic 45–130; PULSE 77–90; RESP 16–18; TEMP 36.8–37.2; O2SAT 94–100
--- NOTE | ~2022-08-12 | CT_ITS ---
EXAMINATION: CT brain wo con INDICATION: Transient alteration of awareness COMPARISON: 06/02/2021 TECHNIQUE: Standard unenhanced head CT. The dose-length product (DLP) was 681.00 mGy-cm. The mA was a djusted according to patient size. Iterative re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 technique was employed. FINDINGS: There is no acute intraparenchymal hemorrhage. No evidence of mass lesion. No evidence of a cute infarction. There is an old right temporoparietal infarct. There is mild periventricular and sub cortical hypodensity probably related to small vessel ischemic disease. There is moderate prominence of the sulci and ventricles related to cerebral atrophy. Intracranial calcified cerebral atherosclero sis is noted. There are no extra-axial collections. There is no mass effect or midline shift. The orb its and soft tissues are unremarkable. The visualized sinuses and mastoid air cells are well aerated. Cerumen is noted in the external auditory canals. IMPRESSION: 1. Old right temporoparietal infarct without acute intracranial abnormality. 2. Age related findings. Reviewed, dictated and finalized at location F. ING AND PRIMING OPERATOR
--- NOTE | ~2022-08-12 | CT_ITS ---
EXAMINATION: CTA chest PE protocol DATE: 08/14/2022 09:39 INDICATION: Transient alteration of awareness TECHNIQUE: Computed tomography angiography (CTA) of the chest was performed with 100 mL Omnipaque-350 intravenous contrast timed to evaluate the pulmonary arteries. Coronal maximum intensity projection 3D-re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s were created by the technologist. The dose-length product (DLP) was 930.71 mGy-cm. Automated exposure control and iterative re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 technique were employed. COMPARISON: None. FINDINGS: The pulmonary arteries are well-opacified. No pulmonary embolism is identified. There is mi ld emphysema. Dependent atelectasis is noted. The lungs are free of focal airspace opacities. Calcifi ed pulmonary nodules are consistent with old granulomatous disease. No pathologically enlarged thorac ic lymph nodes are identified. The heart size is normal. There is moderate thoracic spondylosis. Ther e appears to be occlusion of the right subclavian vein with multiple right chest wall collaterals. IMPRESSION: 1. No pulmonary embolism or acute cardiopulmonary abnormality. Reviewed, dictated and finalized at location A. ICITY EXPERT
--- NOTE | ~2022-08-12 | XR_ITS ---
EXAMINATION: XR chest 1V portable DATE: 08/12/2022 17:34 INDICATION: Dizziness, weakness and syncope TECHNIQUE: frontal view of the chest was obtained. COMPARISON: Chest radiograph dated 06/02/2021 FINDINGS: Calcified nodule in the right midlung zone consistent with old granulomatous disease. Unchanged hazy opacities at the left lower lung zone with obscuration of the apex of the heart corresponding to a pr ominent left paracardial fat pad on intervening MRI dated 08/27/2022. No other airspace opacities, pu lmonary edema, pleural effusion or pneumothorax. The cardiomediastinal silhouette is normal. IMPRESSION: 1. No acute cardiopulmonary disease. Reviewed, dictated and finalized at location A. TUNER
--- NOTE | 2022-08-12 15:53 | ECG_ITS ---
Measurements Intervals [place] Rate: 83 P: [place]: 0 QRS: 10 QRSD: 99 T: 114 QT: 391 QTc: 462 Interpretive Statements SUPRAVENTRICULAR RHYTHM LOW QRS VOLTAGE IN PRECORDIAL LEADS [QRS DEFLECTION < 1.0 mV IN CHEST LEADS] POSSIBLE RIGHT VENTRICULAR CONDUCTION DELAY [RSR (QR) IN V1/V2] ST DEVIATION AND MODERATE T-WAVE ABNORMALITY, CONSIDER ANTEROLATERAL ISCHEMIA [-0.1+ mV T-WAVE IN V3-V6] INTERPRETATION BASED ON A DEFAULT AGE OF 40 YEARS COMPARED TO ECG 07/22/2022 15:51:29 NO SIGNIFICANT CHANGE Electronically Signed On 08-13-2022 16:32:45 PHARMACOVIGILANCE SAFETY EXPERT by Roosevelt Sung M.D.
[2022-08-12] MEDS: SODIUM CHLORIDE 0.9% IV 2,000 ML 999 ML IV CONT (16:02)
[2022-08-12 16:36] LABS: Basophils Absolute Auto 0.03 K/mm3 (0.00-0.10); Basophils Percent Auto 0.4 % (0.0-1.0); Eosinophils Absolute Auto 0.45 K/mm3 (0.02-0.50); Hematocrit 26.5 % (37.0-46.0); Hemoglobin 8.5 g/dL (12.4-15.3); Immature Granulocyte Absolute 0.03 K/mm3 (0.00-0.00); Immature Granulocyte Percent A 0.4 % (0.0-0.0); Lymphocytes Absolute Auto 1.11 K/mm3 (1.10-4.50); Lymphocytes Percent Auto 14.8 % (18.0-42.0); Mean Corpuscular HGB Conc 32.1 g/dL (32.0-36.0); Mean Corpuscular Hemoglobin 34.3 pg (27.0-31.0); Mean Corpuscular Volume 106.9 fL (78.0-102.0); Mean Platelet Volume 9.7 fl (8.7-11.0); Monocytes Absolute Auto 0.82 K/mm3 (0.10-0.90); Monocytes Percent Auto 10.9 % (2.0-11.0); Neutrophils Absolute Auto 5.1 K/mm3 (1.7-7.2); Neutrophils Percent Auto 67.5 % (50.0-70.0); Platelet Count Result 338 K/mm3 (150-420); Red Blood Count 2.48 M/mm3 (4.70-6.10); Red Cell Distribution Width 13.2 % (11.6-14.4); White Blood Count 7.5 K/mm3 (4.8-10.8)
[2022-08-12 16:51] LABS: Partial Thromboplastin Time 24.7 SEC (23.90-30.70); Prothrombin Time 10.9 Seconds (9.50-12.10)
[2022-08-12 17:01] LABS: D Dimer 2.63 mg/L (0.19-0.50)
[2022-08-12 17:17] LABS: Lactic Acid Reflex 2.9 mmol/L (0.4-2.0)
[2022-08-12 17:21] LABS: Alanine Aminotransferase 17 U/L (16-63); Albumin Level 3.1 g/dL (3.4-5.0); Alkaline Phosphatase 96 U/L (46-116); Anion Gap 13 mmol/L (8-16); Aspartate Amino Transferase 14 U/L (15-37); Bilirubin,Total 0.2 mg/dL (0.00-1.00); Blood Urea Nitrogen 36 mg/dL (7-18); Calcium 8.5 mg/dL (8.5-10.1); Carbon Dioxide 22 mmol/L (21-32); Chloride 108 mmol/L (98-108); Estimated Glomerular Filt Rate 23; Glucose 126 mg/dL (70-99); Magnesium 1.7 mg/dL (1.8-2.4); NT Pro B Type Natriuretic Pept 244 pg/mL (0-125); Osmolality Calculated 306 mOsm/kg (285-295); Potassium 4.8 mmol/L (3.5-5.1); Sodium 143 mmol/L (136-145); Total Protein 6.1 g/dL (6.4-8.2); Troponin I 8.3 ng/L (0.00-60.4)
[2022-08-12 17:32] LABS: CRP < 0.5 mg/dL (0.0-0.9)
[2022-08-12 17:51] LABS: SARS-CoV-2 RNA PCR Negative (Negative)
[2022-08-12 17:57] LABS: Influenza A QL RT-PCR Negative (Negative); Influenza B QL RT-PCR Negative (Negative)
--- NOTE | 2022-08-12 18:22 | ED.SYNCOPE ---
HPI - Syncope General Chief Complaint: Syncope <Roosevelt Stephenson MD - Last Filed: 08/12/22 18:57> Stated Complaint: ambulance <Roosevelt Stephenson MD - Last Filed: 08/12/22 18:57> Time Seen by Provider: 08/13/22 07:03 <Roosevelt Stephenson MD - Last Filed: 08/12/22 18:57> Source: patient and EMS <Roosevelt Stephenson MD - Last Filed: 08/12/22 18:57> Mode of arrival: EMS <Roosevelt Stephenson MD - Last Filed: 08/12/22 18:57> Limitations: no limitations <Roosevelt Stephenson MD - Last Filed: 08/12/22 18:57> History of Present Illness HPI narrative: is a 71-year-old gentleman that presents with episode of syncope with some hypoglycemic and hypotensive episode that occurred while he was at home, patient brought in via EMS currently no chest pain no shortness of breath no abdominal pain no dysuria no flank pain no fever chills. The patient has history of CVA with hypertension. There is no dysuria no hematuria no flank pain. Patient had similar event in the past currently without any complaints. Initially his blood pressure was 74 systolic. And patient's recent glucose level was in the 120s. <Roosevelt Stephenson MD - Last Filed: 08/12/22 18:57> MD complaint: loss of consciousness <Roosevelt Stephenson MD - Last Filed: 08/12/22 18:57> Onset (ago): hour(s) <Roosevelt Stephenson MD - Last Filed: 08/12/22 18:57> Prodromal symptoms: none <Roosevelt Stephenson MD - Last Filed: 08/12/22 18:57> Related Data Home Medications: Home Medications Medication Instructions Recorded Confirmed aspirin 81 mg tablet,delayed 81 mg PO DAILY 06/19/20 08/12/22 release (Adult Aspirin Regimen) furosemide 40 mg tablet 40 mg PO DAILY 07/22/22 08/12/22 folic acid 1 mg tablet 1 mg PO DAILY 07/27/22 08/12/22 pantoprazole 40 mg tablet,delayed 40 mg PO QAM 07/27/22 08/12/22 release thiamine HCl (vitamin B1) 100 mg 100 mg PO DAILY 07/27/22 08/12/22 tablet (Vitamin B-1) <Roosevelt Stephenson MD - Last Filed: 08/12/22 18:57> Allergies/Adverse Reactions: Allergies Allergy/AdvReac Type Severity Reaction Status Date / Time No Known Allergies Allergy Mild Verified 08/12/22 17:27 <Roosevelt Stephenson MD - Last Filed: 08/12/22 18:57> Review of Systems Review of Systems: All systems reviewed & are unremarkable except as noted in HPI and below <Roosevelt Stephenson MD - Last Filed: 08/12/22 18:57> PMFSH Past Medical History Medical History: Medical History Abnormal EKG Elevated PSA HTN (hypertension) Overweight Psoriasis Seizure disorder <Roosevelt Stephenson MD - Last Filed: 08/12/22 18:57> Surgical History Surgical History: Surgical History History of hernia repair <Roosevelt Stephenson MD - Last Filed: 08/12/22 18:57> Family History Family History: Family History Other Family history of malignant neoplasm <Roosevelt Stephenson MD - Last Filed: 08/12/22 18:57> Social History Social History: Social History Smoking status: Former smoker Tobacco type: cigarettes Smoking end date: 06/29/01 Alcohol intake: current Alcohol use details: Daily Substance use: never 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
[2022-08-12 18:45] LABS: Occult Blood Positive (Negative)
[2022-08-12 19:33] LABS: Reflex Lactic Acid Yes or No Add Lactic
[2022-08-12] MEDS: PANTOPRAZOLE SODIUM IV 40 MG VIAL 80 MG IV PUSH (19:45)
[2022-08-12 20:03] LABS: Lactic Acid 1.3 mmol/L (0.4-2.0)
[2022-08-12 21:22] LABS: RSV RNA, RT-PCR Negative (Negative)
[2022-08-12] MEDS: SODIUM CHLORIDE 0.9% IV 1,000 ML 150 ML IV CONT (22:59)
--- NOTE | 2022-08-12 23:07 | PC.NURSE ---
Report received, care resumed. Pt rsting in bed lying on back, awake, Noted BP is hypotensive, order fot the IVF started as per order, pt placed on music artist, noted SR on monitor. IVF placed to W.O. per verbal order of Dr Stephenson. Pt assisted to side lying position, POC discussed c pt. and pt is currently on wait list awaiting transfer. Call torres at pt. side.
[2022-08-13] VITALS (66 sets, daily range): BP systolic 75–112; BP diastolic 38–74; PULSE 77–128; RESP 10–20; TEMP 36.9–37.1; O2SAT 90–99
--- NOTE | 2022-08-13 00:54 | PC.NURSE ---
Pt sleeping, RR even and nonlabored, no distress, Monitor showing SR, call torres at pt side.
--- NOTE | 2022-08-13 02:11 | PC.NURSE ---
Pt awake and wanting to stand to use urinal. Pt assisted c x2 SBA to use urinal, minimal output of approx 30ml of urine. Pt assisted back to bed, denies any dizziness on standing. Placed back on monitor, VSS at this time. Call torres in pt reach.
--- NOTE | 2022-08-13 03:00 | PC.NURSE ---
Pt resting, states he is unable to sleep, VSS, monitor continues to show SR at this time, Pt turns self in bed, call torres at side, encouraged to call if needed.
--- NOTE | 2022-08-13 04:14 | PC.NURSE ---
Pt resting comfortably a this time, no changes, continuing to monitor, call torres at pt side.
--- NOTE | 2022-08-13 05:34 | PC.NURSE ---
Pt awake and assisted c x2 SBA to stand and urinate. Pt had approx 200ml urine output, assist back to bed, pt. denies any dizziness on standing. VSS, continuing to monitor.
[2022-08-13 05:59] LABS: Hematocrit 27.4 % (37.0-46.0); Hemoglobin 8.6 g/dL (12.4-15.3)
--- NOTE | 2022-08-13 06:38 | PC.NURSE ---
Call back from [facility], no beds at this time, pt remains on wait list. Pt sleeping, no distress noted. VSS.
--- NOTE | 2022-08-13 07:09 | PC.NURSE ---
Report to ANALI Orozco
[2022-08-13] MEDS: ONDANSETRON INJ 4 MG/2 ML VIAL IV PUSH (07:58)
--- NOTE | 2022-08-13 09:55 | PC.NURSE ---
0725 introduced self to pt. declined food offered. requested water only. call torres in reach. no distress noted. respirations even and unlabored. 0830 pt resting per bed. denies any need at this time. call torres in reach. informed of continued effort to find bed placement. voiced understanding and requesting to just stay at this facility. explained need for higher level of care.
[2022-08-13] MEDS: SODIUM CHLORIDE 0.9% IV 1,000 ML 999 ML IV CONT (13:49)
--- NOTE | 2022-08-13 14:53 | PC.NURSE ---
in room with pt. no complaints voiced per pt. informed pt and of transfer attempts. voiced understanding. call torres in reach for pt.
[2022-08-13] MEDS: levETIRAcetam 500 MG TABLET PO ×2 (15:12→21:08)
--- NOTE | 2022-08-13 16:39 | PC.NURSE ---
shalom meza provided.
--- NOTE | 2022-08-13 19:09 | PC.NURSE ---
report to ANALI Rivas. pt sleeping.
[2022-08-13 22:05] LABS: Hematocrit 24.9 % (37.0-46.0); Hemoglobin 7.8 g/dL (12.4-15.3)
[2022-08-13 22:16] LABS: Anion Gap 7 mmol/L (8-16); Blood Urea Nitrogen 16 mg/dL (7-18); Calcium 8.1 mg/dL (8.5-10.1); Carbon Dioxide 26 mmol/L (21-32); Chloride 113 mmol/L (98-108); Estimated Glomerular Filt Rate 54; Glucose 100 mg/dL (70-99); Osmolality Calculated 303 mOsm/kg (285-295); Potassium 3.8 mmol/L (3.5-5.1); Sodium 146 mmol/L (136-145)
[2022-08-14] VITALS (43 sets, daily range): BP systolic 80–119; BP diastolic 48–96; PULSE 69–127; RESP 12–22; TEMP 35.9–37.4; O2SAT 87–98; BMI 31.6
--- NOTE | 2022-08-14 01:37 | PC.NURSE ---
[place] from [facility] transfer center calls for pt update. RN updated [place] and she states will return a call with a bed number.
[2022-08-14] MEDS: SODIUM CHLORIDE 0.9% IV 1,000 ML 125 ML IV CONT (02:59)
[2022-08-14] MEDS: PANTOPRAZOLE SODIUM IV 40 MG VIAL IV PUSH ×3 (03:14→17:10)
[2022-08-14 07:01] LABS: Hemoglobin 9.6 g/dL (12.4-15.3); Mean Corpuscular Hemoglobin 32.5 pg (27.0-31.0); Mean Corpuscular Volume 105.1 fL (78.0-102.0); Mean Platelet Volume 9.8 fl (8.7-11.0); Platelet Count Result 314 K/mm3 (150-420); Red Blood Count 2.95 M/mm3 (4.70-6.10); Red Cell Distribution Width 14.9 % (11.6-14.4); White Blood Count 4.6 K/mm3 (4.8-10.8)
[2022-08-14 07:23] LABS: Alanine Aminotransferase 18 U/L (16-63); Alkaline Phosphatase 96 U/L (46-116); Anion Gap 9 mmol/L (8-16); Aspartate Amino Transferase 16 U/L (15-37); Bilirubin,Total 0.5 mg/dL (0.00-1.00); Blood Urea Nitrogen 13 mg/dL (7-18); Calcium 8.4 mg/dL (8.5-10.1); Carbon Dioxide 25 mmol/L (21-32); Chloride 113 mmol/L (98-108); Estimated Glomerular Filt Rate > 60; Glucose 91 mg/dL (70-99); Osmolality Calculated 304 mOsm/kg (285-295); Potassium 4.2 mmol/L (3.5-5.1); Sodium 147 mmol/L (136-145); Total Protein 5.5 g/dL (6.4-8.2)
--- NOTE | 2022-08-14 08:07 | ECG_ITS ---
Measurements Intervals [place] Rate: 77 P: [place]: 0 QRS: 18 QRSD: 91 T: 64 QT: 376 QTc: 428 Interpretive Statements ATRIAL FIBRILLATION LOW QRS VOLTAGE [QRS DEFLECTION < 0.5/1.0 mV IN LIMB/CHEST LEADS] POSSIBLE RIGHT VENTRICULAR CONDUCTION DELAY [RSR (QR) IN V1/V2] NONSPECIFIC ST AND T-WAVE CHANGES COMPARED TO ECG 08/12/2022 16:37:00 ATRIAL FIBRILLATION NOW PRESENT ST (T WAVE) DEVIATION NOW PRESENT Electronically Signed On 08-14-2022 16:58:59 BINDER AND WRAPPER PACKER by Francesca Bridges M.D.
[2022-08-14 08:09] LABS: Troponin I 8.5 ng/L (0.00-60.4)
[2022-08-14 08:25] LABS: Base Excess ABG -3.5 mmol/L (0-2); HCO3 ABG 21.7 mmol/L (23-29); Oxygen Saturation ABG 90.7 % (95-97); Oxyhemoglobin 90.1 % (94-100); PCO2 ABG 39.6 mmHg (35-45); PO2 ABG 61.2 mmHg (75-85); pH ABG 7.36 (7.35-7.45)
[2022-08-14 08:27] LABS: Device ROOM AIR; Modified Allen's Test Pass; Site Drawn LEFT RADIAL
[2022-08-14] MEDS: levETIRAcetam 500 MG TABLET PO ×2 (08:49→20:06)
--- NOTE | 2022-08-14 10:13 | ADMGEN ---
This patient, Malcolm Patel, was admitted to 2nd Floor Room 209-1. Patient/family oriented to hospital policies and general routines including ID bracelet, bed and alarms, visiting hours, pain management, procedures, bathroom and other care routines, personal items, smoking policy, room service/diet, and visiting hours. Information on how to activate the Rapid Response Team has been discussed. Patient/Family are encouraged to report perceived risks to care and to ask questions if they do not understand what they are told or what they should do.
--- NOTE | 2022-08-14 10:20 | PC.NURSE ---
etta dubois, notified of patient admission. voiced understanding.
--- NOTE | 2022-08-14 10:39 | PC.NURSE ---
all requests to other facilities for icu bed placement have been called and notified to cancel placement request.
--- NOTE | 2022-08-14 10:56 | PC.NURSE ---
Up to BSC, heart rate increase to 120-140 with activity
[2022-08-14] MEDS: FUROSEMIDE 40 MG TABLET PO (11:03)
[2022-08-14] MEDS: THIAMINE HCL 100 MG TABLET PO (11:03)
[2022-08-14] MEDS: ATORVASTATIN 10 MG TABLET 20 MG PO (11:04)
[2022-08-14] MEDS: FOLIC ACID 1 MG TABLET PO (11:04)
--- NOTE | 2022-08-14 12:11 | PC.NURSE ---
Refused lunch tray, just not hungry at this time.
[2022-08-14] MEDS: ACETAMINOPHEN 325 MG TABLET 650 MG PO (20:05)
[2022-08-14] MEDS: traZODone HCL 50 MG TABLET PO (20:06)
[2022-08-15] VITALS (7 sets, daily range): BP systolic 91–106; BP diastolic 46–57; PULSE 74–101; RESP 15–17; TEMP 36.1–36.6; O2SAT 94–96
[2022-08-15 05:41] LABS: Hematocrit 29.1 % (37.0-46.0); Hemoglobin 9.4 g/dL (12.4-15.3); Mean Corpuscular HGB Conc 32.3 g/dL (32.0-36.0); Mean Corpuscular Hemoglobin 33.5 pg (27.0-31.0); Mean Corpuscular Volume 103.6 fL (78.0-102.0); Mean Platelet Volume 9.7 fl (8.7-11.0); Platelet Count Result 271 K/mm3 (150-420); Red Blood Count 2.81 M/mm3 (4.70-6.10); Red Cell Distribution Width 14.7 % (11.6-14.4); White Blood Count 4.6 K/mm3 (4.8-10.8)
[2022-08-15 06:20] LABS: Alanine Aminotransferase 18 U/L (16-63); Albumin Level 2.9 g/dL (3.4-5.0); Alkaline Phosphatase 97 U/L (46-116); Anion Gap 8 mmol/L (8-16); Aspartate Amino Transferase 14 U/L (15-37); Bilirubin,Total 0.4 mg/dL (0.00-1.00); Blood Urea Nitrogen 9 mg/dL (7-18); Calcium 8.2 mg/dL (8.5-10.1); Carbon Dioxide 27 mmol/L (21-32); Chloride 109 mmol/L (98-108); Estimated CRCL calculation 59 ml/min; Estimated Glomerular Filt Rate > 60; Glucose 97 mg/dL (70-99); Magnesium 1.5 mg/dL (1.8-2.4); Osmolality Calculated 296 mOsm/kg (285-295); Potassium 3.4 mmol/L (3.5-5.1); Sodium 144 mmol/L (136-145); Total Protein 5.9 g/dL (6.4-8.2)
--- NOTE | 2022-08-15 09:23 | PM.SD2 ---
Same Day Admit/Disch: HPI History of Present Illness Chief complaint: syncope,GI Bleed,hypertension Narrative: Malcolm Patel is a 71 year old male presented to our department due to a syncopal episode . Patient has a past medical history of abnormal EKG, elevated PSA, hypertension, overweight, psoriasis, and seizure disorder. According to patient on 08/14/2022 he was assisting his with a mattress down the [place] when he experienced dizziness and lightheadedness. He worked his way to the restroom to sit on the toilet and blacked out. Patient states that when he woke up EMS was in the restroom attempting to get him off the restroom floor. According to patient it was difficult to remove him from the restroom due to his position. EMS eventually got him out via wheelchair in transporting him to our emergency. on admission patient's vitals 74/45, 36.8, 77-127, 16, 90% room air WBC 7.5 hemoglobin 8.5 hematocrit 26.5 platelets 338 D-dimer 2.63 lactic acid 2.9 sodium 143, potassium 4.8, BUN 36, creatinine 2.73, glucose 126, calcium 8.5, magnesium 1.7, AST 14, total bilirubin 0.2, ALT 17, troponin 8.3, CRP less than 0.5, BNP 244, COVID influenza negative occult blood positive, CT of the chest and head no new findings CTA no pulmonary embolism noted. While in the ED patient received several liter of normal saline and PRBCs. according to ED notes patient needed ICU placement. patient condition improved while in the ED waiting for placement and he was admitted on our med/surg floor. today patient's condition has stabilized he will follow-up with his primary care physician on Tuesday. I will also contact his primary care physician and fax her results of our findings and patient condition. The patient denies SOB, CP, palpitation, extremity numbness, lightheadedness, dizziness, constipation, diarrhea, chills, or fever. Discharge instructions reviewed with patient, as well as provided in writing per nursing staff. The instructions also include specific and strict return/GO TO THE ER as well as f/u information. All questions have been answered, and the patient and/or family deny any further questions with discharge and discharge plan. [facility] Past Medical History Medical History Abnormal EKG Elevated PSA HTN (hypertension) Overweight Psoriasis Seizure disorder Surgical History Surgical History History of hernia repair Family History Family History Other Family history of malignant neoplasm Social History Social History Smoking status: Former smoker Tobacco type: cigarettes Smoking end date: 06/29/01 Alcohol intake: former Alcohol use details: Daily Substance use: never Lack of Transportation: No Lack of Food: Never True Current Housing: I Have Housing Concerned About Future Housing: No Difficulty Paying Gas/Electric Bills: No Difficulty Paying for Meds: No Currently Unemployed: No Education: High School Diploma/GED Difficulty w/ Childcare or Family Care: No 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, 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, 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 Gender identity (if verbalized by the patient): Male Spiritual care concerns: No Same Day Admit/Disch: Med Pre-admit Medications Home Medications Medication Instructions Recorded Confirmed Type aspirin 81 mg tablet,delayed 81 mg PO DAILY 06/19/20 08/12/22 History release (Adult Aspirin Regimen) levetiracetam 500 mg tablet See Rx Instructions .Route 03/16/22 08/12/22 Rx .COMPLEX #180 tabs atorvastatin 20 mg tablet See Rx Instructions .Route 07/08/22 08/12/22 Rx .COMPLEX #90 tabs folic acid 1 mg tablet 1 mg PO DAILY 07/27/22 08/12/22 History pantoprazole 40 mg tablet,delayed 40 mg PO QAM 07/27/22 08/12/22 History release thiami
[2022-08-15] MEDS: levETIRAcetam 500 MG TABLET PO (09:28)
[2022-08-15] MEDS: FOLIC ACID 1 MG TABLET PO (09:28)
[2022-08-15] MEDS: FUROSEMIDE 40 MG TABLET PO (09:28)
[2022-08-15] MEDS: ATORVASTATIN 10 MG TABLET 20 MG PO (09:28)
[2022-08-15] MEDS: THIAMINE HCL 100 MG TABLET PO (09:28)
[2022-08-15] MEDS: PANTOPRAZOLE SODIUM IV 40 MG VIAL IV PUSH (09:29)
[2022-08-15] MEDS: POTASSIUM CHLORIDE 20 MEQ TABLET 40 MEQ PO (11:24)
[2022-08-15] MEDS: MAGNESIUM OXIDE 400 MG TABLET PO (11:24)
--- NOTE | 2022-08-15 12:05 | PC.NURSE ---
Discharge packet reviewed with patient and . All questions answered. Pt educated on monitoring blood pressures and daily weights. Pt escorted via wheelchair to front of hospital for discharge.
--- NOTE | 2022-08-25 09:16 | PC.NURSE ---
Unable to contact for discharge call back.
== END 2022-08-15 12:05 | disposition home or self-care (01) ==
LOC: CHSED 08-14 09:03 → CHS2ND 08-14 09:07
PROVIDERS: Emergency Medicine; Internal Medicine Critical Care Medicine; Nurse Practitioner; Admitting Provider Internal Medicine; Emergency Provider Emergency Medicine; Visit Provider Internal Medicine
DX: D64.9 Anemia, unspecified (principal); K92.2 Gastrointestinal hemorrhage, unspecified; N17.9 Acute kidney failure, unspecified; I10 Essential (primary) hypertension; I95.9 Hypotension, unspecified; L40.9 Psoriasis, unspecified; E87.8 Other disorders of electrolyte and fluid balance, not elsewhere classified; G40.909 Epilepsy, unspecified, not intractable, without status epilepticus; R60.0 Localized edema; R97.20 Elevated prostate specific antigen [PSA]; Z79.82 Long term (current) use of aspirin; Z86.73 Personal history of transient ischemic attack (TIA), and cerebral infarction without residual deficits; Z20.822 Contact with and (suspected) exposure to COVID-19
CPT/HCPCS: 36415; 36430; 36600; 70450; 71045; 71275; 80048; 80053; 82805; 83605; 83735; 83880; 84484; 85014; 85018; 85025; 85027; 85380; 85610; 85730; 86140; 86850; 86900; 86901; 86920; 87040; 87634; 87636; 93005; 96361; 96374; 96375; 96376; 97162; 99285; A9270; C9113; G0378; J2405; J7030; P9016; Q9967

== ENCOUNTER 2022-08-17 15:35 | Outpatient (CLI) | payer MEDICARE, SELFPAY ==
[2022-08-17 16:10] LABS: Basophils Absolute Auto 0.03 K/mm3 (0.00-0.10); Basophils Percent Auto 0.4 % (0.0-1.0); Eosinophils Absolute Auto 0.82 K/mm3 (0.02-0.50); Eosinophils Percent Auto 10.3 % (1.0-6.0); Hematocrit 35.2 % (37.0-46.0); Hemoglobin 11.3 g/dL (12.4-15.3); Immature Granulocyte Absolute 0.03 K/mm3 (0.00-0.00); Immature Granulocyte Percent A 0.4 % (0.0-0.0); Lymphocytes Absolute Auto 1.36 K/mm3 (1.10-4.50); Lymphocytes Percent Auto 17.1 % (18.0-42.0); Mean Corpuscular HGB Conc 32.1 g/dL (32.0-36.0); Mean Corpuscular Hemoglobin 32.8 pg (27.0-31.0); Mean Corpuscular Volume 102.3 fL (78.0-102.0); Mean Platelet Volume 9.6 fl (8.7-11.0); Monocytes Absolute Auto 0.69 K/mm3 (0.10-0.90); Monocytes Percent Auto 8.7 % (2.0-11.0); Neutrophils Percent Auto 63.1 % (50.0-70.0); Platelet Count Result 319 K/mm3 (150-420); Red Blood Count 3.44 M/mm3 (4.70-6.10); Red Cell Distribution Width 13.8 % (11.6-14.4)
[2022-08-17 16:34] LABS: Alanine Aminotransferase 18 U/L (16-63); Albumin Level 3.7 g/dL (3.4-5.0); Alkaline Phosphatase 126 U/L (46-116); Anion Gap 10 mmol/L (8-16); Aspartate Amino Transferase 16 U/L (15-37); Bilirubin,Total 0.3 mg/dL (0.00-1.00); Blood Urea Nitrogen 11 mg/dL (7-18); CRP 2.2 mg/dL (0.0-0.9); Carbon Dioxide 29 mmol/L (21-32); Chloride 104 mmol/L (98-108); Estimated Glomerular Filt Rate 58; Glucose 111 mg/dL (70-99); Osmolality Calculated 296 mOsm/kg (285-295); Sodium 143 mmol/L (136-145); Total Protein 6.9 g/dL (6.4-8.2)
== END 2022-08-17 15:36 | disposition home or self-care (01) ==
LOC: CHSLAB 15:37
PROVIDERS: PCP Nurse Practitioner Family; Visit Provider Family Medicine
DX: I10 Essential (primary) hypertension (principal); L40.9 Psoriasis, unspecified
CPT/HCPCS: 36415; 80053; 85025; 86140

== ENCOUNTER 2022-08-19 10:51 | Outpatient (CLI) | payer MEDICARE, SELFPAY | END 2022-08-19 10:52 | disposition home or self-care (01) | LOC: CHSCARD 10:52 | PROVIDERS: PCP Family Medicine; Visit Provider Family Medicine | DX: I48.91 Unspecified atrial fibrillation (principal) | CPT/HCPCS: 99199; 93225; 93226 ==

== ENCOUNTER 2022-08-25 07:25 | Outpatient (CLI) | payer MEDICARE, SELFPAY ==
--- NOTE | ~2022-08-25 | US_ITS ---
Duplex Sonography of the right extremity: Indication: Soft tissue disorder, swelling Findings: Sagittal and transverse B-mode images as well as color-flow imaging were performed on the r ight femoral and popliteal veins. B-mode examination was done without and with compression in the tr ansverse plane. There is good visualization of the common femoral, proximal profunda femoral, superf icial femoral, greater saphenous, and popliteal veins. Normal flow was seen on color-flow imaging. N ormal compressibility was demonstrated. Right posterior tibial and peroneal veins are also patent. Impression: No evidence of deep vein thrombosis involving the right lower extremity. Reviewed, dictated and finalized at location M. OTAPE EDITOR Impression: No evidence of deep vein thrombosis involving the right lower extremity.
[2022-08-25 07:41] LABS: Hemoglobin 11.4 g/dL (12.4-15.3)
[2022-08-25 07:56] LABS: D Dimer 4.06 mg/L (0.19-0.50)
== END 2022-08-25 07:26 | disposition home or self-care (01) ==
LOC: CHSIMG 07:26
PROVIDERS: Nurse Practitioner; PCP Nurse Practitioner Family; Visit Provider Nurse Practitioner Family
DX: D64.9 Anemia, unspecified (principal); M79.89 Other specified soft tissue disorders
CPT/HCPCS: 36415; 85014; 85018; 85380; 93971

== ENCOUNTER 2022-09-07 11:39 | Outpatient (CLI) | payer MEDICARE, SELFPAY ==
[2022-09-07 12:21] LABS: Hematocrit 34.5 % (37.0-46.0); Hemoglobin 11.1 g/dL (12.4-15.3); Mean Corpuscular HGB Conc 32.2 g/dL (32.0-36.0); Mean Corpuscular Hemoglobin 33.1 pg (27.0-31.0); Mean Platelet Volume 9.5 fl (8.7-11.0); Platelet Count Result 366 K/mm3 (150-420); Red Blood Count 3.35 M/mm3 (4.70-6.10); Red Cell Distribution Width 14.2 % (11.6-14.4); White Blood Count 9.1 K/mm3 (4.8-10.8)
[2022-09-07 12:50] LABS: Alanine Aminotransferase 21 U/L (16-63); Albumin Level 3.6 g/dL (3.4-5.0); Alkaline Phosphatase 136 U/L (46-116); Anion Gap 10 mmol/L (8-16); Aspartate Amino Transferase 22 U/L (15-37); Bilirubin,Total 0.3 mg/dL (0.00-1.00); Blood Urea Nitrogen 10 mg/dL (7-18); Calcium 8.9 mg/dL (8.5-10.1); Carbon Dioxide 30 mmol/L (21-32); Chloride 102 mmol/L (98-108); Estimated Glomerular Filt Rate > 60; Glucose 101 mg/dL (70-99); Osmolality Calculated 293 mOsm/kg (285-295); Potassium 3.9 mmol/L (3.5-5.1); Sodium 142 mmol/L (136-145); Total Protein 6.6 g/dL (6.4-8.2)
[2022-09-07 12:59] LABS: HIV 1 P24 AG Negative (Negative); HIV 1/2 AB Negative (Negative)
[2022-09-10 11:48] LABS: NIL 0.01 IU/mL; Quantiferon TB Plus, 1T NEGATIVE (NEGATIVE); TB1-NIL 0.01 IU/mL; TB2-NIL 0.01 IU/mL
[2022-09-11 13:20] LABS: Hepatitis B Core Antibody Nonreactive (Nonreactive); Hepatitis C Signal to Cutoff 0.02 ratio (<1.00); Hepatitis C Virus Antibody Nonreactive (Nonreactive)
== END 2022-09-07 11:40 | disposition home or self-care (01) ==
LOC: CHSLAB 11:42
PROVIDERS: PCP Nurse Practitioner Family
DX: L40.0 Psoriasis vulgaris (principal)
CPT/HCPCS: 36415; 80053; 85027; 86480; 86703; 86705; 86803

== ENCOUNTER 2022-10-16 11:04 | Outpatient (CLI) | payer MEDICARE, SELFPAY ==
[2022-10-16 11:14] LABS: Hematocrit 42.5 % (37.0-46.0); Hemoglobin 13.3 g/dL (12.4-15.3); Mean Corpuscular HGB Conc 31.3 g/dL (32.0-36.0); Mean Corpuscular Hemoglobin 30.9 pg (27.0-31.0); Mean Corpuscular Volume 98.6 fL (78.0-102.0); Mean Platelet Volume 9.6 fl (8.7-11.0); Platelet Count Result 424 K/mm3 (150-420); Red Blood Count 4.31 M/mm3 (4.70-6.10); Red Cell Distribution Width 13.1 % (11.6-14.4); White Blood Count 9.9 K/mm3 (4.8-10.8)
== END 2022-10-16 11:05 | disposition home or self-care (01) ==
LOC: CHSLAB 11:05
PROVIDERS: PCP Family Medicine; Visit Provider Family Medicine
DX: D64.9 Anemia, unspecified (principal)
CPT/HCPCS: 36415; 85027

== ENCOUNTER 2022-11-15 16:44 | Outpatient (CLI) | payer MEDICARE, SELFPAY ==
[2022-11-15 17:57] LABS: Alanine Aminotransferase 23 U/L (16-63); Albumin Level 4.1 g/dL (3.4-5.0); Alkaline Phosphatase 139 U/L (46-116); Anion Gap 8 mmol/L (8-16); Aspartate Amino Transferase 23 U/L (15-37); Bilirubin,Total 0.4 mg/dL (0.00-1.00); Blood Urea Nitrogen 19 mg/dL (7-18); Calcium 9.1 mg/dL (8.5-10.1); Carbon Dioxide 32 mmol/L (21-32); Chloride 103 mmol/L (98-108); Estimated Glomerular Filt Rate > 60; Glucose 131 mg/dL (70-99); Osmolality Calculated 300 mOsm/kg (285-295); Potassium 3.9 mmol/L (3.5-5.1); Sodium 143 mmol/L (136-145); Total Protein 7.7 g/dL (6.4-8.2)
[2022-11-15 18:01] LABS: Prostate Specific Antigen < 0.1 ng/mL (< OR = 4.0)
== END 2022-11-15 16:45 | disposition home or self-care (01) ==
LOC: CHSLAB 16:47
PROVIDERS: PCP Family Medicine; Visit Provider Urology
DX: C61 Malignant neoplasm of prostate (principal)
CPT/HCPCS: 36415; 80053; 84153

== ENCOUNTER 2022-12-24 12:16 | Outpatient (CLI) | payer MEDICARE, SELFPAY ==
--- NOTE | 2022-12-24 12:21 | ECHO_ITS ---
Patient Info Name: Malcolm Patel Age: 72 years : 1950 Gender: Male Ht: 70 in Wt: 220 lbs BSA: 2.25 m2 HR: 62 bpm BP: 133 / 70 mmHg Heart Rhythm: Sinus Rhythm Technical Quality: Fair Exam Date: 12/24/2022 12:09 PM Exam Location: [facility] Patient Status: Outpatient Admit Date: 12/24/2022 Staff Ordering Physician: Soren Hanson DO Advertising Clerk: Celia Don RDCS Attending Provider: Soren Hanson DO Referring Physician: Valentin LOMAS; Exam Type: CA echo doppler color flow Study Info Indications I35.0 - Nonrheumatic aortic (valve) stenosis Complete two-dimensional, color flow and Doppler transthoracic echocardiogram is performed. Summary 1. Complete two-dimensional, color flow and Doppler transthoracic echocardiogram is performed. 2. Left ventricular chamber dimension is normal. 3. Left ventricular systolic function is normal, estimated at 65-70%. 4. There is mild concentric increased left ventricular wall thickness. 5. The left ventricular diastolic function is grade I diastolic dysfunction. 6. E/e' 13 is mildly elevated. 7. There is severe aortic valve sclerosis. 8. There is moderate aortic valve stenosis with a peak velocity of 274 cm/s, mean gradient of 14 mmHg, and aortic valve area of 1.0 cm2. 9. There is trace tricuspid valve regurgitation. 10. No pulmonary hypertension, estimated pulmonary arterial systolic pressure is 12 mmHg. Left Ventricle E/e' 13 is mildly elevated. Left ventricular chamber dimension is normal. Left ventricular systolic function is normal, estimated at 65-70%. There is mild concentric increased left ventricular wall thickness. The left ventricular diastolic function is grade I diastolic dysfunction. Right Ventricle Right ventricular systolic function is normal and with normal TAPSE 2.3 cm. Right ventricular chamber dimension is normal. Left Atria Left atrial chamber dimension is normal. Right Atria Right atrial chamber dimension is normal. Aortic Valve The aortic valve is trileaflet. There is severe aortic valve sclerosis. There is moderate aortic valve stenosis with a peak velocity of 274 cm/s, mean gradient of 14 mmHg, and aortic valve area of 1.0 cm2. There is no aortic valve regurgitation. Pulmonic Valve There is no pulmonic regurgitation. Mitral Valve There is no mitral valve stenosis. There is no mitral valve regurgitation. Tricuspid Valve There is trace tricuspid valve regurgitation. No pulmonary hypertension, estimated pulmonary arterial systolic pressure is 12 mmHg. Pericardium/Pleural There is no pericardial effusion. Inferior Vena Cava Normal inferior vena cava with >50% collapse upon inspiration consistent with normal right atrial pressure, 5 mmHg. Aorta The aortic root size at the sinus of Valsalva is normal. Left Ventricular Outflow Tract Name Value Normal LVOT 2D LVOT Diameter 2.0 cm LVOT Doppler LVOT Peak Velocity 98 cm/s LVOT Peak Gradient 4 mmHg LVOT Mean Gradient 2 mmHg LVOT VTI 19 cm LVOT VTI/AV VTI Ratio 0.3 LVOT Stroke Volume 56 ml Pulmonic V
== END 2022-12-24 12:17 | disposition home or self-care (01) ==
LOC: CHSIMG 12:17
PROVIDERS: PCP Nurse Practitioner Family; Visit Provider Internal Medicine Cardiovascular Disease
DX: I35.0 Nonrheumatic aortic (valve) stenosis (principal)
CPT/HCPCS: 93306

== ENCOUNTER 2023-04-20 16:31 | Outpatient (CLI) | payer MEDICARE, SELFPAY ==
[2023-04-20 18:11] LABS: Alanine Aminotransferase 17 U/L (16-63); Alkaline Phosphatase 151 U/L (46-116); Anion Gap 7 mmol/L (8-16); Aspartate Amino Transferase 16 U/L (15-37); Bilirubin,Total 0.5 mg/dL (0.00-1.00); Blood Urea Nitrogen 16 mg/dL (7-18); Carbon Dioxide 33 mmol/L (21-32); Chloride 103 mmol/L (98-108); Estimated Glomerular Filt Rate > 60; Glucose 98 mg/dL (70-99); Osmolality Calculated 297 mOsm/kg (285-295); Potassium 3.9 mmol/L (3.5-5.1); Sodium 143 mmol/L (136-145); Total Protein 7.1 g/dL (6.4-8.2)
[2023-04-20 18:15] LABS: Prostate Specific Antigen < 0.1 ng/mL (< OR = 4.0)
== END 2023-04-20 16:32 | disposition home or self-care (01) ==
LOC: CHSLAB 16:33
PROVIDERS: PCP Nurse Practitioner Family; Visit Provider Urology
DX: C61 Malignant neoplasm of prostate (principal)
CPT/HCPCS: 36415; 80053; 84153

== ENCOUNTER 2023-11-12 10:27 | Outpatient (CLI) | payer MEDICARE, SELFPAY ==
[2023-11-12 12:12] LABS: Alanine Aminotransferase 19 U/L (16-63); Albumin Level 3.8 g/dL (3.4-5.0); Alkaline Phosphatase 146 U/L (46-116); Anion Gap 6 mmol/L (8-16); Aspartate Amino Transferase 16 U/L (15-37); Bilirubin,Total 0.5 mg/dL (0.00-1.00); Blood Urea Nitrogen 18 mg/dL (7-18); Calcium 9.2 mg/dL (8.5-10.1); Carbon Dioxide 34 mmol/L (21-32); Chloride 103 mmol/L (98-108); Estimated Glomerular Filt Rate > 60; Glucose 96 mg/dL (70-99); Osmolality Calculated 297 mOsm/kg (285-295); Potassium 3.6 mmol/L (3.5-5.1); Sodium 143 mmol/L (136-145); Total Protein 7.1 g/dL (6.4-8.2)
[2023-11-12 12:26] LABS: Prostate Specific Antigen < 0.1 ng/mL (< OR = 4.0)
== END 2023-11-12 10:28 | disposition home or self-care (01) ==
LOC: CHSLAB 10:29
PROVIDERS: PCP Nurse Practitioner Family; Visit Provider Urology
DX: C61 Malignant neoplasm of prostate (principal)
CPT/HCPCS: 36415; 80053; 84153

== ENCOUNTER 2024-01-02 14:53 | Outpatient (CLI) | payer MEDICARE, SELFPAY ==
--- NOTE | 2024-01-02 14:57 | ECHO_ITS ---
Patient Info Name: Malcolm Patel Age: 73 years : 1950 Gender: Male Ht: 70 in Wt: 232 lbs BSA: 2.31 m2 HR: 65 bpm BP: 145 / 92 mmHg Heart Rhythm: Sinus Rhythm Technical Quality: Fair Exam Date: 01/02/2024 2:57 PM Exam Location: [facility] Patient Status: Outpatient Admit Date: 01/02/2024 Staff Ordering Physician: Soren Hanson DO Laborer Hoisting: Luis Herrera RDCS Attending Provider: Soren Hanson DO Referring Physician: Valentin LOMAS; Exam Type: CA echo doppler color flow Study Info Indications - nonrheumatic aortic valve stenosis Complete two-dimensional, color flow and Doppler transthoracic echocardiogram is performed. Summary 1. Complete two-dimensional, color flow and Doppler transthoracic echocardiogram is performed. 2. Left ventricular chamber dimension is normal. 3. Left ventricular systolic function is normal, estimated at 65-70%. 4. The left ventricular diastolic function is grade I diastolic dysfunction. 5. E/e' 12 is mildly elevated. 6. There is moderate aortic valve sclerosis. 7. There is mild aortic valve stenosis with valve area of 1.5 cm2, mean gradient 9 mmHg and peak velocity of 2.09 m/s. 8. The mitral valve has moderately calcified annulus. Left Ventricle E/e' 12 is mildly elevated. Left ventricular chamber dimension is normal. Left ventricular systolic function is normal, estimated at 65-70%. The left ventricular diastolic function is grade I diastolic dysfunction. Right Ventricle Right ventricular systolic function is normal and with normal TAPSE 3.0 cm. Right ventricular chamber dimension is normal. Left Atria Left atrial chamber dimension is normal. Right Atria Right atrial chamber dimension is normal. Aortic Valve There is mild aortic valve stenosis with valve area of 1.5 cm2, mean gradient 9 mmHg and peak velocity of 2.09 m/s. The aortic valve is trileaflet. There is moderate aortic valve sclerosis. There is no aortic valve regurgitation. Pulmonic Valve There is no pulmonic regurgitation. Mitral Valve The mitral valve has moderately calcified annulus. There is no mitral valve stenosis. There is no mitral valve regurgitation. Tricuspid Valve There is no tricuspid valve regurgitation. Pericardium/Pleural There is no pericardial effusion. Inferior Vena Cava Normal inferior vena cava with >50% collapse upon inspiration consistent with normal right atrial pressure, 5 mmHg. Aorta The aortic root size at the sinus of Valsalva is normal. Tricuspid Valve Name Value Normal Estimated PAP/RSVP RA Pressure 5 mmHg <=5 Report Signatures
== END 2024-01-02 14:54 | disposition home or self-care (01) ==
LOC: CHSIMG 14:54
PROVIDERS: PCP Nurse Practitioner Family; Visit Provider Internal Medicine Cardiovascular Disease
DX: I35.0 Nonrheumatic aortic (valve) stenosis (principal); I34.81 Nonrheumatic mitral (valve) annulus calcification
CPT/HCPCS: 93306

== ENCOUNTER 2024-04-13 14:05 | Outpatient (CLI) | payer MEDICARE, SELFPAY ==
[2024-04-13 14:20] LABS: Basophils Absolute Auto 0.04 K/mm3 (0.00-0.10); Basophils Percent Auto 0.6 % (0.0-1.0); Eosinophils Absolute Auto 0.41 K/mm3 (0.02-0.50); Eosinophils Percent Auto 5.8 % (1.0-6.0); Hematocrit 41.1 % (37.0-46.0); Hemoglobin 13.6 g/dL (12.4-15.3); Immature Granulocyte Absolute 0.02 K/mm3 (0.00-0.00); Immature Granulocyte Percent A 0.3 % (0.0-0.0); Lymphocytes Absolute Auto 1.81 K/mm3 (1.10-4.50); Lymphocytes Percent Auto 25.7 % (18.0-42.0); Mean Corpuscular HGB Conc 33.1 g/dL (32-36); Mean Corpuscular Hemoglobin 32.7 pg (27.0-31.0); Mean Corpuscular Volume 98.8 fL (78.0-102.0); Mean Platelet Volume 8.8 fl (8.7-11.0); Monocytes Absolute Auto 0.71 K/mm3 (0.10-0.90); Monocytes Percent Auto 10.1 % (2.0-11.0); Neutrophils Absolute Auto 4.04 K/mm3 (1.70-7.20); Neutrophils Percent Auto 57.5 % (50.0-70.0); Platelet Count Result 334 K/mm3 (150-420); Red Blood Count 4.16 M/mm3 (4.70-6.10); Red Cell Distribution Width 13.2 % (11.6-14.4)
[2024-04-13 15:30] LABS: Alanine Aminotransferase 31 U/L (16-63); Albumin Level 3.9 g/dL (3.4-5.0); Alkaline Phosphatase 184 U/L (46-116); Anion Gap 7 mmol/L (4-12); Aspartate Amino Transferase 22 U/L (15-37); Bilirubin,Total 0.4 mg/dL (0.00-1.00); Blood Urea Nitrogen 11 mg/dL (7-18); Calcium 9.1 mg/dL (8.5-10.1); Carbon Dioxide 30 mmol/L (21-32); Chloride 102 mmol/L (98-108); Estimated Glomerular Filt Rate > 60; Ferritin 145 ng/mL (26-388); Folic Acid 15.6 ng/mL (8.6->20); Glucose 98 mg/dL (70-99); Iron 54 ug/dL (65-175); Osmolality Calculated 287 mOsm/kg (285-295); Percent Iron Saturation 19 % (12-57); Sodium 139 mmol/L (136-145); Total Protein 7.3 g/dL (6.4-8.2); Vitamin B12 281 pg/mL (193-986)
[2024-04-13 15:31] LABS: Hemoglobin A1C 5.8 % (<5.7); Prostate Specific Antigen < 0.1 ng/mL (< OR = 4.0)
== END 2024-04-13 14:06 | disposition home or self-care (01) ==
LOC: CHSLAB 14:07
PROVIDERS: PCP Family Medicine; Visit Provider Family Medicine
DX: E53.8 Deficiency of other specified B group vitamins (principal); R97.20 Elevated prostate specific antigen [PSA]; R35.1 Nocturia; E03.9 Hypothyroidism, unspecified; G62.9 Polyneuropathy, unspecified; E11.9 Type 2 diabetes mellitus without complications; D64.9 Anemia, unspecified; D50.9 Iron deficiency anemia, unspecified; I10 Essential (primary) hypertension; Z12.5 Encounter for screening for malignant neoplasm of prostate
CPT/HCPCS: 36415; 80053; 82607; 82728; 82746; 83036; 83540; 83550; 84153; 84443; 85025; G0103

== ENCOUNTER 2024-04-27 12:13 | Outpatient (CLI) | payer MEDICARE, SELFPAY ==
--- NOTE | ~2024-04-27 | US_ITS ---
US arterial ankle brachial ind INDICATION: Peripheral vascular disease. Worsening foot pain with [id number] sensations. TECHNIQUE: Segmental pressures and plethysmographic and Doppler waveforms of the brachial and lower e xtremity arteries were obtained. COMPARISON: None. FINDINGS: Right and left brachial artery pressures of 113 mm Hg and 120 mm Hg, respectively, are concordant (no rmal difference <= 30 mmHg). The right ankle-brachial index (EMY) is 1.13 (normal >= 0.9-1.0). The right great toe-brachial index (TBI) is 0.78 (normal >= 0.60). The left EMY is 1.27. The left TBI is 0.64. IMPRESSION: 1. Normal ankle-brachial indices. Reviewed, dictated and finalized at location B.
== END 2024-04-27 12:14 | disposition home or self-care (01) ==
LOC: CHSIMG 12:16
PROVIDERS: PCP Nurse Practitioner Family; Visit Provider Family Medicine
DX: I73.9 Peripheral vascular disease, unspecified (principal)
CPT/HCPCS: 93922

== ENCOUNTER 2024-05-23 16:43 | Outpatient (CLI) | payer MEDICARE, SELFPAY ==
[2024-05-23 17:33] LABS: Alanine Aminotransferase 35 U/L (16-63); Albumin Level 3.7 g/dL (3.4-5.0); Alkaline Phosphatase 195 U/L (46-116); Anion Gap 7 mmol/L (4-12); Aspartate Amino Transferase 29 U/L (15-37); Bilirubin,Total 0.4 mg/dL (0.00-1.00); Blood Urea Nitrogen 10 mg/dL (7-18); Calcium 9.1 mg/dL (8.5-10.1); Carbon Dioxide 32 mmol/L (21-32); Chloride 100 mmol/L (98-108); Estimated Glomerular Filt Rate > 60; Glucose 101 mg/dL (70-99); Osmolality Calculated 287 mOsm/kg (285-295); Potassium 3.8 mmol/L (3.5-5.1); Sodium 139 mmol/L (136-145); Total Protein 8.3 g/dL (6.4-8.2)
[2024-05-23 17:45] LABS: Prostate Specific Antigen < 0.1 ng/mL (< OR = 4.0)
== END 2024-05-23 16:44 | disposition home or self-care (01) ==
LOC: CHSLAB 16:47
PROVIDERS: PCP Family Medicine; Visit Provider Urology
DX: C61 Malignant neoplasm of prostate (principal)
CPT/HCPCS: 36415; 80053; 84153

== ENCOUNTER 2024-06-20 08:55 | Outpatient (CLI) | payer MEDICARE, SELFPAY ==
[2024-06-20 09:41] LABS: Cholesterol 128 mg/dL (0-200); HDL Direct 40 mg/dL (40-60); LDL Cholesterol Calculated 66 mg/dL (<130); Triglycerides 111 mg/dL (0-150)
== END 2024-06-20 08:56 | disposition home or self-care (01) ==
LOC: CHSLAB 08:57
PROVIDERS: PCP Family Medicine; Visit Provider Internal Medicine Cardiovascular Disease
DX: E78.5 Hyperlipidemia, unspecified (principal)
CPT/HCPCS: 36415; 80061

== ENCOUNTER 2024-11-02 09:32 | Outpatient (CLI) | payer MEDICARE, SELFPAY ==
[2024-11-02 09:48] LABS: Basophils Absolute Auto 0.05 K/mm3 (0.00-0.10); Basophils Percent Auto 0.7 % (0.0-1.0); Eosinophils Absolute Auto 0.43 K/mm3 (0.02-0.50); Eosinophils Percent Auto 6.3 % (1.0-6.0); Hematocrit 45.3 % (37.0-46.0); Hemoglobin 14.4 g/dL (12.4-15.3); Immature Granulocyte Absolute 0.02 K/mm3 (0.00-0.00); Immature Granulocyte Percent A 0.3 % (0.0-0.0); Lymphocytes Absolute Auto 1.54 K/mm3 (1.10-4.50); Lymphocytes Percent Auto 22.7 % (18.0-42.0); Mean Corpuscular HGB Conc 31.8 g/dL (32-36); Mean Corpuscular Hemoglobin 31.9 pg (27.0-31.0); Mean Corpuscular Volume 100.2 fL (78.0-102.0); Mean Platelet Volume 9.4 fl (8.7-11.0); Monocytes Absolute Auto 0.66 K/mm3 (0.10-0.90); Monocytes Percent Auto 9.7 % (2.0-11.0); Neutrophils Absolute Auto 4.09 K/mm3 (1.70-7.20); Neutrophils Percent Auto 60.3 % (50.0-70.0); Platelet Count Result 297 K/mm3 (150-420); Red Blood Count 4.52 M/mm3 (4.70-6.10); Red Cell Distribution Width 13.2 % (11.6-14.4); White Blood Count 6.8 K/mm3 (4.8-10.8)
[2024-11-02 10:06] LABS: Microalbumin Urine Random 18.1 mg/L
--- OUTSIDE RECORDS SUMMARY | 2024-11-02 10:06 | XMS_ITS | Clinical Summary ---
Author Organization [facility] Address [address] [place] [address] Care Team Providers Care Penetration Tester Name Role Phone Korin Guillen WAFER FABRICATION OPERATOR Primary Care Provider [phone] Allergies No known active allergies Medications levETIRAcetam (KEPPRA) 500 MG tabletIndication s:treat seizures post stroke Take 500 mg by mouth 2 (two) times daily. Indications: treat seizures post stroke 2 Active atorvastatin (LIPITOR) 20 MG tabletIndication s:high cholesterol Take 20 mg by mouth nightly at bedtime. Indications: high cholesterol 2 Active furosemide (LASIX) 40 MG tabletIndication s:water pill Take 20 mg by mouth every morning. Indications: water pill 2 Active clobetasol (TEMOVATE) 0.05 % ointmentIndicati ons:moderate to severe plaque psoriasis Apply 1 each topically 2 (two) times daily. Indications: moderate to severe plaque psoriasis *08/18 pt timothy with MD today on which cream to use 2 Active folic acid (FOLVITE) 1 MG tabletIndication s:supplement Take 1 tablet (1 mg total) by mouth daily. 30 tablet 2 Active pantoprazole EC (PROTONIX) 40 MG tabletIndication s:GERD Take 1 tablet (40 mg total) by mouth daily. 30 tablet 2 Active vitamin B-1 (THIAMINE) 100 MG tabletIndication s:Supplement Take 1 tablet (100 mg total) by mouth daily. 30 tablet 2 Active hydrOXYzine (ATARAX) 25 MG tabletIndication s:itching Take 25 mg by mouth every 6 (six) hours as needed for Itching. Indications: itching 2 Active mometasone furoate (ELOCON) 0.1 % creamIndications :itch Apply 1 each topically 2 (two) times daily as needed. *08/18 pt clarifiying with MD today on which cream to use Indications: itch 2 Active acetaminophen (TYLENOL) 325 MG tabletIndication s:pain Take 650 mg by mouth every 6 (six) hours as needed for Pain. Indications: pain 2 Active triamcinolone (KENALOG) 0.1 % creamIndications :Psoriasis Apply 15 g topically 2 (two) times daily. *08/18 pt clarifiying with MD today on which cream to use Indications: Psoriasis 2 Active Apremilast (OTEZLA) 10 & 20 & 30 MG Tablet Therapy PackIndications: take as ordered for psoriasis Take 1 tablet by mouth daily. Indications: take as ordered for psoriasis 3 Active Active Problems Problem Noted Date Diagnosed Date Hypoglycemia 07/22/2022 Social History Tobacco Use Types Packs/Day Years Used Date Smoking Tobacco: Every Day Cigarettes Smokeless Tobacco: Never Tobacco Cessation:Ready to Q uit: Not Asked; Counseling Given: Not Answered Alcohol Use Standard Drinks/Week Comments Yes 46.7 (1 standard drink = 0.6 oz pure alcohol) OASIS D0700: Social Isolation Answer Da te Recorded Frequency of experiencing loneliness or isolatio n Never 09/21/2022 OASIS A1250: Transportation Answer Date Recorded Lack of Transportation (Medical) No 09/21/2022 Lack of Transportation (Non-Medical) No 09/21/2022 Patient Unable or Declines to Respond No 09/21/2022 OASIS B1300: Health Literacy Answer Benjamin e Recorded Frequency of needing help to read materials from doctor or pharmacy Never 09/21/2022 Sex and Gender Information Value Date Recorded Sex Assigned at Not on file Legal Sex Male 10:56 PM SUPERVISOR CONTACT LENS Gender Identity Not on file Sexual Orientation Not on file Last Filed Vital Signs Vital Sign Reading Time Taken Comments Blood Pressure 130/78 09/21/2022 12:56 PM SUPERVISOR CONTACT LENS Pulse 64 09/21/2022 12:56 PM SUPERVISOR CONTACT LENS Temperature 36.3 C (97.3 F) 09/21/2022 12:56 PM SUPERVISOR CONTACT LENS Respiratory Rate 18 09/21/2022 12:56 PM SUPERVISOR CONTACT LENS Oxygen Saturation 94% 09/21/2022 12:56 PM SUPERVISOR CONTACT LENS Inhaled Oxygen Concentration - - Weight 98 kg (216 lb) 2022 9:49 AM SUPERVISOR CONTACT LENS Height 177.8 cm (5' 10 ) 07/22/2022 9:49 PM SUPERVISOR CONTACT LENS Body Mass Index 30.99 07/22/2022 9:49 PM SUPERVISOR CONTACT LENS Plan of Treatment Health Maintenance Due Date Last Done Comments Colorectal Cancer Screening Colonoscopy (10 Years) 1950 Pneumococcal Vaccine: 65+ Years (1 of 2 - PCV) 1955 Hepatitis C 1967 DTaP, Tdap and Td Vaccines ( 1 - Tdap) 1968 Zoster Vaccines (1 of 2) 1999 Annual Medicare Wellness Visit 2014 COVID-19 Vaccine (4 2023-2 5 season) 2024 09/09/2021, 12/19/2020, 11/21/2020 Influenza Adult (#1) 2024 RSV Immunization or 60+ Years (1 - 1-dose 75+ series) 2024 Meningococcal B Vaccine Aged Out No l onger eligible based on patient's age to complete this topic Meningococcal Vaccine Aged Out No raven maria eugenia eligible based on patient's age to complete this topic RSV Immunizations Under 20 Months Aged Out No longer eligible b ased on patient's age to complete this topic Goals Goal Patient Goal Type Associated Problems Recent Progress Patient-Stated? Author Family - family caregiver with be involved in care transitions and discharge planning Lifestyle No Daily Dean, COMMERCIAL INSULATORpowder blender MEDICARE [employer] [employer] Advance Directives * Full Code (Latest Code Status on File) Date Activated Date Inactivated Comments 07/31/2022 5:31 PM * Full Code Date Activated Date Inactivated Comments 07/22/2022 10:01 PM 07/26/2022 5:11 PM Care Teams Penetration Tester Relationship Specialty Start Date End Date Korin Guillen, SUSAN [address] [place] [address] PCP - General NURSE PRACTITIONER 07/22/22
[2024-11-02 10:18] LABS: Creatinine Urine 402.57 mg/dL (40-278); MALB Creatinine Ratio 4.4 mg/g (0-30)
[2024-11-02 10:42] LABS: Alanine Aminotransferase 29 U/L (16-63); Albumin Level 3.9 g/dL (3.4-5.0); Alkaline Phosphatase 183 U/L (46-116); Anion Gap 9 mmol/L (4-12); Aspartate Amino Transferase 27 U/L (15-37); Bilirubin,Total 0.6 mg/dL (0.00-1.00); Blood Urea Nitrogen 12 mg/dL (7-18); Calcium 9.4 mg/dL (8.5-10.1); Carbon Dioxide 32 mmol/L (21-32); Chloride 103 mmol/L (98-108); Estimated Glomerular Filt Rate > 60; Glucose 98 mg/dL (70-99); NT Pro B Type Natriuretic Pept 172 pg/mL (0-450); Osmolality Calculated 297 mOsm/kg (285-295); Potassium 4.5 mmol/L (3.5-5.1); Sodium 144 mmol/L (136-145); Total Protein 7.5 g/dL (6.4-8.2)
== END 2024-11-02 09:33 | disposition home or self-care (01) ==
LOC: CHSLAB 09:34
PROVIDERS: PCP Family Medicine; Visit Provider Family Medicine
DX: E11.9 Type 2 diabetes mellitus without complications (principal); I48.91 Unspecified atrial fibrillation; I50.9 Heart failure, unspecified
CPT/HCPCS: 36415; 80053; 82043; 83880; 85025

== ENCOUNTER 2024-11-08 18:16 | Observation (INO) | payer MEDICARE, SELFPAY ==
--- NOTE | ~2024-11-08 | XR_ITS ---
XR chest 1V portable Ordering provider: Roosevelt Stephenson MD History: 74 years Male with . cough and congestion . Comparison: None. FINDINGS: MEDIASTINUM: The cardiac silhouette is not enlarged. LUNGS: No effusions or pneumothorax. Opacification the right lung base medially is seen suggestive of atelectasis versus pneumonia. Calcified granuloma in the right midzone peripherally. OTHER: No free air under the diaphragm. Degenerative changes of the spine. IMPRESSION: Right basilar atelectasis versus pneumonia seen medially. Reviewed, dictated and finalized at location A.
--- OUTSIDE RECORDS SUMMARY | 2024-11-08 18:18 | XMS_ITS | Clinical Summary ---
Author Organization [facility] Address [address] [place] [address] Care Team Providers Care Rehab Technician Name Role Phone Korin Guillen SUPERVISOR PRODUCTION MANAGING Primary Care Provider [phone] [phone] Allergies No known active allergies Medications levETIRAcetam [...] on file Legal Sex Male 10:56 PM PRODUCT SAFETY ADMINISTRATOR Gender Identity Not on file Sexual Orientation Not on file Last Filed Vital Signs Vital Sign Reading Time Taken Comments Blood Pressure 130/78 09/21/2022 12:56 PM PRODUCT SAFETY ADMINISTRATOR Pulse 64 09/21/2022 12:56 PM PRODUCT SAFETY ADMINISTRATOR Temperature 36.3 C (97.3 F) 09/21/2022 12:56 PM PRODUCT SAFETY ADMINISTRATOR Respiratory Rate 18 09/21/2022 12:56 PM PRODUCT SAFETY ADMINISTRATOR Oxygen Saturation 94% 09/21/2022 12:56 PM PRODUCT SAFETY ADMINISTRATOR Inhaled Oxygen Concentration - - Weight 98 kg (216 lb) 2022 9:49 AM PRODUCT SAFETY ADMINISTRATOR Height 177.8 cm (5' 10 ) 07/22/2022 9:49 PM PRODUCT SAFETY ADMINISTRATOR Body Mass Index 30.99 07/22/2022 9:49 PM PRODUCT SAFETY ADMINISTRATOR Plan of Treatment Health Maintenance Due Date [...] and discharge planning Lifestyle No Daily Dean, COTTON HEADERhome based assistant MEDICARE [employer] Advance Directives * Full Code (Latest Code Status on File) Date Activated Date Inactivated Comments 07/31/2022 5:31 PM * Full Code Date Activated Date Inactivated Comments 07/22/2022 10:01 PM 07/26/2022 5:11 PM Care Teams Rehab Technician Relationship Specialty Start Date End Date Korin Guillen, SUSAN [address] [place] [address] PCP - General NURSE PRACTITIONER 07/22/22
[2024-11-08 18:26] VITALS: BP 119/74; PULSE 77; RESP 18; O2SAT 98
--- NOTE | 2024-11-08 18:29 | PC.NURSE ---
covid swab sent to lab
--- NOTE | 2024-11-08 18:32 | ECG_ITS ---
Test Date: 2024-11-08 18:49:18 Measurements Intervals [place] Rate: 70 P: 57 AL: 241 QRS: -11 QRSD: 99 T: 194 QT: 389 QTc: 421 Interpretive Statements SINUS RHYTHM WITH FIRST DEGREE AV BLOCK INCOMPLETE RIGHT BUNDLE BRANCH BLOCK [90+ ms QRS DURATION, TERMINAL R IN V1/V2, 40+ ms S IN I/aVL/V4/V5/V6] ST DEVIATION AND MODERATE T-WAVE ABNORMALITY, CONSIDER LATERAL ISCHEMIA [-0.1+ mV T-WAVE IN I/aVL/V5/V6] ST DEVIATION AND MODERATE T-WAVE ABNORMALITY, CONSIDER INFERIOR ISCHEMIA [-0.1+ mV T-WAVE IN II/aVF] No previous ECG available for comparison Electronically Signed On 11-09-2024 16:29:01 CDT by Andrey Ledesma M.D.
--- OUTSIDE RECORDS SUMMARY | 2024-11-08 18:45 | XMS_ITS | Clinical Summary ---
Author Organization [facility] Address [address] [place] [address] Care Team Providers Care Ase Master Mechanic Name Role Phone Korin Guillen MECHANIC CHIEF Primary Care Provider [phone] [phone] Allergies No known active allergies Medications levETIRAcetam [...] on file Legal Sex Male 10:56 PM NUCLEAR POWER PLANT ENGINEER Gender Identity Not on file Sexual Orientation Not on file Last Filed Vital Signs Vital Sign Reading Time Taken Comments Blood Pressure 130/78 09/21/2022 12:56 PM NUCLEAR POWER PLANT ENGINEER Pulse 64 09/21/2022 12:56 PM NUCLEAR POWER PLANT ENGINEER Temperature 36.3 C (97.3 F) 09/21/2022 12:56 PM NUCLEAR POWER PLANT ENGINEER Respiratory Rate 18 09/21/2022 12:56 PM NUCLEAR POWER PLANT ENGINEER Oxygen Saturation 94% 09/21/2022 12:56 PM NUCLEAR POWER PLANT ENGINEER Inhaled Oxygen Concentration - - Weight 98 kg (216 lb) 2022 9:49 AM NUCLEAR POWER PLANT ENGINEER Height 177.8 cm (5' 10 ) 07/22/2022 9:49 PM NUCLEAR POWER PLANT ENGINEER Body Mass Index 30.99 07/22/2022 9:49 PM NUCLEAR POWER PLANT ENGINEER Plan of Treatment Health Maintenance Due Date [...] and discharge planning Lifestyle No Daily Dean, LANDING GEAR MECHANICasparagus buncher MEDICARE [employer] [facility] [employer] Advance Directives * Full Code (Latest Code Status on File) Date Activated Date Inactivated Comments 07/31/2022 5:31 PM * Full Code Date Activated Date Inactivated Comments 07/22/2022 10:01 PM 07/26/2022 5:11 PM Care Teams Ase Master Mechanic Relationship Specialty Start Date End Date Korin Guillen, SUSAN [address] [place] [address] PCP - General NURSE PRACTITIONER 07/22/22
[2024-11-08 18:49] LABS: Basophils Absolute Auto 0.04 K/mm3 (0.00-0.10); Basophils Percent Auto 0.6 % (0.0-1.0); Eosinophils Absolute Auto 0.11 K/mm3 (0.02-0.50); Eosinophils Percent Auto 1.8 % (1.0-6.0); Hematocrit 40.9 % (37.0-46.0); Hemoglobin 13.5 g/dL (12.4-15.3); Immature Granulocyte Absolute 0.01 K/mm3 (0.00-0.00); Immature Granulocyte Percent A 0.2 % (0.0-0.0); Lymphocytes Percent Auto 19.4 % (18.0-42.0); Mean Corpuscular Hemoglobin 31.6 pg (27.0-31.0); Mean Corpuscular Volume 95.8 fL (78.0-102.0); Mean Platelet Volume 9.4 fl (8.7-11.0); Monocytes Absolute Auto 0.77 K/mm3 (0.10-0.90); Monocytes Percent Auto 12.4 % (2.0-11.0); Neutrophils Absolute Auto 4.07 K/mm3 (1.70-7.20); Neutrophils Percent Auto 65.6 % (50.0-70.0); Platelet Count Result 208 K/mm3 (150-420); Red Blood Count 4.27 M/mm3 (4.70-6.10); Red Cell Distribution Width 13.3 % (11.6-14.4); White Blood Count 6.2 K/mm3 (4.8-10.8)
--- NOTE | 2024-11-08 18:53 | PC.NURSE ---
REPORT TO ANALI BAXTER
[2024-11-08] MEDS: ONDANSETRON INJ 4 MG/2 ML VIAL IV PUSH (18:54)
[2024-11-08 19:08] LABS: Alanine Aminotransferase 24 U/L (16-63); Albumin Level 3.4 g/dL (3.4-5.0); Alkaline Phosphatase 151 U/L (46-116); Anion Gap 11 mmol/L (4-12); Aspartate Amino Transferase 24 U/L (15-37); Blood Urea Nitrogen 14 mg/dL (7-18); Calcium 8.5 mg/dL (8.5-10.1); Carbon Dioxide 29 mmol/L (21-32); Chloride 98 mmol/L (98-108); Estimated CRCL calculation 57 ml/min; Estimated Glomerular Filt Rate > 60; Glucose 129 mg/dL (70-99); Lipase 28 U/L (16-77); Osmolality Calculated 288 mOsm/kg (285-295); Sodium 138 mmol/L (136-145); Total Protein 7.2 g/dL (6.4-8.2)
[2024-11-08 19:11] LABS: Influenza A QL RT-PCR Negative (Negative); Influenza B QL RT-PCR Negative (Negative); RSV RNA, RT-PCR Negative (Negative); SARS-CoV-2 RNA PCR Positive (Negative)
[2024-11-08 19:13] LABS: Lactic Acid Reflex 3.1 mmol/L (0.4-2.0)
--- NOTE | 2024-11-08 19:19 | ED.NAVMDI ---
HPI - Nausea/Vomiting/Diarrhea General Chief complaint: Nausea/Vomiting/Diarrhea Stated complaint: WEAKNESS Source: patient, family and EMS Mode of arrival: EMS Limitations: physical limitation History of Present Illness HPI Narrative: this is a 74-year-old male with a history of hyperlipidemia hypertension presents via EMS with some cough congestion with nausea vomiting with no abdominal pain no chest pain currently no shortness of breath no audible wheezes patient is afebrile with vital signs stable O2 sats 98% on room air. Patient presents via EMS with some 1 to 2 day history of nausea vomiting with some cough nasal congestion and weakness. MD elicited complaint: nausea and vomiting Onset (ago): day(s) Description of vomiting: watery Description of diarrhea: mucus Associated nausea: Yes Associated abdominal pain: No Related Data Home Medications ?Medication ?Instructions ?Recorded ?Confirmed ?Last Taken ?Type aspirin 81 mg tablet,delayed 81 mg PO DAILY 12/26/23 11/02/24 Unknown History release deucravacitinib 6 mg tablet 6 mg PO DAILY 11/02/24 11/02/24 Unknown History (Adan) Allergies Allergy/AdvReac Type Severity Reaction Status Date / Time No Known Allergies Allergy Mild Verified 11/02/24 09:17 Review of Systems Review of Systems: All systems reviewed & are unremarkable except as noted in HPI and below PMFSH Past Medical History Medical History Abnormal EKG Psoriasis Overweight HTN (hypertension) Seizure disorder Elevated PSA Surgical History Surgical History History of hernia repair Family History Family History Other Family history of malignant neoplasm Social History Social History Smoking status: Former smoker Tobacco type: cigarettes Smoking end date: 06/29/01 Alcohol intake: former Alcohol use details: Daily Substance use: never Do You Feel Safe in your Home?: Yes Lack of Transportation: No Lack of Food: Never True Current Housing: I Have Housing Concerned About Future Housing: No Difficulty Paying Gas/Electric Bills: No Difficulty Paying for Meds: No Currently Unemployed: No Education: High School Diploma/GED Difficulty w/ Childcare or Family Care: No Living arrangements: with family Occupation/Education: retired 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, 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, 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 Gender identity (if verbalized by the patient): Male Spiritual care concerns: No Exam Const: General: healthy appearing and no acute distress Nutritional Appearance: obese Orientation/consciousness: patient oriented x3 HENMT: Head: normal to inspection Neck: Neck: normal visual inspection, no lymphadenopathy and no meningeal signs Chest: Chest palpation & inspection: normal inspection of the chest Resp: Effort & Inspection: normal respiratory effort Auscultation: clear to auscultation bilaterally Cardio: Rate: regular rate Rhythm: regular rhythm GI: GI Palp: Yes Soft to palpation Auscultation: normal bowel sounds : General: Yes bladder normal to palpation Urinary Catheter: Urinary Catheter: patent and draining Skin: General skin exam: normal color Neuro: General: patient oriented x3 and moves all extremities Course Course Emergency Course: Chest x-ray performed shows opacity consisting with infiltrate patient has a labs reviewed with a normal white count his potassium is 3.0, patient received IV fluids and IV Zofran for nausea vomiting. Patient with a 3.0 potassium will replace with [place] rider. Patient is COVID positive. And will admit to hospitalist service. Vital Signs Vital signs: Vital Signs Pulse Rate 77 11/08/24 18:26 Respiratory Rate 18 11/08/24 18:26 Blood Pressure 119/74 11/08/24 18:26 Pulse Oximetry 98 11/08/24 18:26 Oxygen Delivery Room Air 11/08/24 18:26 Pulse Rate 77 11/08/24 18:26 Respiratory Rate 18 11/08/24 18:26 Blood Pressure 119/74 11/08/24 18:26 Pulse Oximetry 98 11/08/24 18:26 Oxygen Delivery Room Air 11/08/24 18:26 MDM - Nausea/Vomiting/Diarrhea Lab Data 11/08/24 18:45 11/08/24 18:45 Labs: Lab Results 11/08/24 Range/Units 18:45 WBC 6.2 (4.8-10.8) K/mm3 RBC 4.27 L (4.70-6.10) M/mm3 Hgb 13.5 (12.4-15.3) g/dL Hct 40.9 (37.0-46.0) % MCV 95.8 (78.0-102.0) fL MCH 31.6 H (27.0-31.0) pg MCHC 33.0 (32-36) g/dL RDW 13.3 (11.6-14.4) % Plt Count 208 (150-420) K/mm3 MPV 9.4 (8.7-11.0) fl Immature Gran % (Auto) 0.2 H (0.0-0.0) % Neut % (Auto) 65.6 (50.0-70.0) % Lymph % (Auto) 19.4 (18.0-42.0) % [place] % (Auto) 12.4 H (2.0-11.0) % Eos % (Auto) 1.8 (1.0-6.0) % Baso % (Auto) 0.6 (0.0-1.0) % Lymph # (Auto) 1.20 (1.10-4.50) K/mm3 [place] # (Auto) 0.77 (0.10-0.90) K/mm3 Eos # (Auto) 0.11 (0.02-0.50) K/mm3 Baso # (Auto) 0.04 (0.00-0.10) K/mm3 Abs Immat Gran (auto) 0.01 H (0.00-0.00) K/mm3 Absolute Neuts (auto) 4.07 (1.70-7.20) K/mm3 Absolute Nucleated RBC 0.00 (0.00-0.00) K/mm3 Nucleated RBC % 0.0 (0-0.0) % Sodium 138 (136-145) mmol/L Potassium 3.0 L (3.5-5.1) mmol/L Chloride 98 (98-108) mmol/L Carbon Dioxide 29 (21-32) mmol/L Anion Gap 11 (4-12) mmol/L BUN 14 (7-18) mg/dL Creatinine 1.16 (0.70-1.30) mg/dL Estim Creat Clear Calc 57 ml/min Estimated GFR > 60 (59 - ) Glucose 129 H (70-99) mg/dL Calculated Osmolality 288 (285-295) mOsm/kg Lactic Acid 3.1 H (0.4-2.0) mmol/L Calcium 8.5 (8.5-10.1) mg/dL Total Bilirubin 1.0 (0.00-1.00) mg/dL AST 24 (15-37) U/L ALT 24 (16-63) U/L Alkaline Phosphatase 151 H (46-116) U/L Total Protein 7.2 (6.4-8.2) g/dL Albumin 3.4 (3.4-5.0) g/dL Lipase 28 (16-77) U/L Influenza A (RT-PCR) Negative (Negative) Influenza B (RT-PCR) Negative (Negative) RSV (RT-PCR) Negative (Negative) SARS-CoV-2 RNA (RT-PCR) Positive A (Negative) Critical Care Time Critical Care Time Critical Care Time: No Discharge Plan Discharge Clinical Impression: COVID, Acute hypokalemia Pneumonia Qualifiers: Pneumonia type: due to unspecified organism Laterality: right Lung location: unspecified part of lung Qualified Code(s): J18.9 - Pneumonia, unspecified organism Patient Disposition: Acute Care Hospital Condition: Guarded Prognosis Patient Language: Kiswahili Prescriptions: No Action aspirin 81 mg tablet,delayed release (DR/EC) 81 mg PO DAILY Sotyktu 6 mg tablet 6 mg PO DAILY ciclopirox 0.77 % gel 1 applic topical BID 28 Days Qty: 30 0RF pantoprazole 40 mg tablet,delayed release (DR/EC) See Rx Instructions .ROUTE .COMPLEX Qty: 90 0RF Dose Instruction: TAKE ONE TABLET BY MOUTH EVERY MORNING Rx Instructions: TAKE ONE TABLET BY MOUTH EVERY MORNING metoprolol succinate 25 mg tablet extended release 24 hr See Rx Instructions .ROUTE .COMPLEX Qty: 90 2RF Dose Instruction: TAKE 1 TABLET BY MOUTH EVERY DAY Rx Instructions: TAKE 1 TABLET BY MOUTH EVERY DAY atorvastatin 20 mg tablet See Rx Instructions .ROUTE .COMPLEX Qty: 90 3RF Dose Instruction: TAKE 1 TABLET BY MOUTH EVERY DAY Rx Instructions: TAKE 1 TABLET BY MOUTH EVERY DAY levetiracetam 500 mg tablet See Rx Instructions .ROUTE .COMPLEX Qty: 180 3RF Dose Instruction: TAKE 1 TABLET BY MOUTH TWICE A DAY Rx Instructions: TAKE 1 TABLET BY MOUTH TWICE A DAY gabapentin 100 mg capsule 200 mg PO TID Qty: 360 0RF torsemide 100 mg tablet 100 mg PO QAM Qty: 90 0RF Follow-up/Referrals: Mark Harper DO [Primary Care Provider] - Time of Disposition: 19:26
[2024-11-08 19:30] VITALS: PULSE 65; RESP 16; O2SAT 94
[2024-11-08] MEDS: AZITHROMYCIN 500 MG/NS 250 ML 500 MG/250 ML BAG 250 MG IVPB (19:46)
[2024-11-08 19:53] VITALS: BP 114/67; PULSE 72; RESP 20; TEMP 36.5; O2SAT 97
[2024-11-08 19:54] LABS: Reflex Lactic Acid Yes or No Add Lactic
--- NOTE | 2024-11-08 19:55 | PC.NURSE ---
Call placed to floor, supervisor in charge will call back when done w/ lunch for pt info and room.
--- NOTE | 2024-11-08 20:25 | PC.NURSE ---
Report given to ANALI Garcia charge, pt will go to Rm 210.
[2024-11-08 20:33] LABS: Lactic Acid 2.2 mmol/L (0.4-2.0)
[2024-11-08] MEDS: KCL 20 MEQ/SW 100 ML 100 ML 50 MEQ IVPB (20:48)
[2024-11-08 20:50] VITALS: BMI 32.4
[2024-11-08] MEDS: SODIUM CHLORIDE 0.9% IV 500 ML 999 ML IV CONT (20:51)
[2024-11-08 20:55] VITALS: BP 116/66; PULSE 74; RESP 20; TEMP 36.5; O2SAT 95
--- NOTE | 2024-11-08 21:38 | ADMGEN ---
This patient, Malcolm Patel, was admitted to 2nd Floor Room 210-1. Patient/family oriented to hospital policies and general routines including ID bracelet, bed and alarms, visiting hours, pain management, procedures, bathroom and other care routines, personal items, smoking policy, room service/diet, and visiting hours. Information on how to activate the Rapid Response Team has been discussed. Patient/Family are encouraged to report perceived risks to care and to ask questions if they do not understand what they are told or what they should do.
[2024-11-08] MEDS: levETIRAcetam 500 MG TABLET BY MOUTH (21:54)
[2024-11-08] MEDS: METOCLOPRAMIDE HCL INJ 10 MG/2 ML VIAL IV PUSH (21:55)
[2024-11-08] MEDS: SODIUM CHLORIDE 0.9% IV 1,000 ML 100 ML IV CONT (21:56)
[2024-11-09] VITALS: BP 98/59; PULSE 65; RESP 17; TEMP 36.8; O2SAT 94
[2024-11-09 07:40] VITALS: PULSE 66
[2024-11-09 07:45] VITALS: BP 103/54; PULSE 64; RESP 16; TEMP 36.2; O2SAT 94
[2024-11-09 08:45] LABS: Basophils Absolute Auto 0.03 K/mm3 (0.00-0.10); Basophils Percent Auto 0.5 % (0.0-1.0); Eosinophils Percent Auto 1.8 % (1.0-6.0); Hematocrit 39.8 % (37.0-46.0); Hemoglobin 12.6 g/dL (12.4-15.3); Immature Granulocyte Absolute 0.02 K/mm3 (0.00-0.00); Immature Granulocyte Percent A 0.4 % (0.0-0.0); Lymphocytes Absolute Auto 0.96 K/mm3 (1.10-4.50); Lymphocytes Percent Auto 16.9 % (18.0-42.0); Mean Corpuscular HGB Conc 31.7 g/dL (32-36); Mean Corpuscular Hemoglobin 31.7 pg (27.0-31.0); Monocytes Absolute Auto 0.66 K/mm3 (0.10-0.90); Monocytes Percent Auto 11.6 % (2.0-11.0); Neutrophils Percent Auto 68.8 % (50.0-70.0); Platelet Count Result 192 K/mm3 (150-420); Red Blood Count 3.98 M/mm3 (4.70-6.10); Red Cell Distribution Width 13.4 % (11.6-14.4); White Blood Count 5.7 K/mm3 (4.8-10.8)
[2024-11-09 09:06] LABS: Alanine Aminotransferase 28 U/L (16-63); Albumin Level 3.2 g/dL (3.4-5.0); Alkaline Phosphatase 139 U/L (46-116); Anion Gap 6 mmol/L (4-12); Aspartate Amino Transferase 21 U/L (15-37); Bilirubin,Total 0.7 mg/dL (0.00-1.00); Blood Urea Nitrogen 13 mg/dL (7-18); Calcium 8.6 mg/dL (8.5-10.1); Carbon Dioxide 34 mmol/L (21-32); Chloride 103 mmol/L (98-108); Estimated CRCL calculation 66 ml/min; Estimated Glomerular Filt Rate > 60; Glucose 106 mg/dL (70-99); Osmolality Calculated 296 mOsm/kg (285-295); Potassium 3.5 mmol/L (3.5-5.1); Sodium 143 mmol/L (136-145); Total Protein 6.9 g/dL (6.4-8.2)
[2024-11-09] MEDS: POTASSIUM CHLORIDE 20 MEQ ER TABLET 40 MEQ PO (09:37)
[2024-11-09] MEDS: ATORVASTATIN 10 MG TABLET 20 MG BY MOUTH (09:37)
[2024-11-09] MEDS: TORSEMIDE 20 MG TABLET 100 MG PO (09:37)
[2024-11-09] MEDS: ASPIRIN 81 MG ENTERIC TABLET PO (09:37)
[2024-11-09] MEDS: GABAPENTIN 100 MG CAPSULE 200 MG PO (09:37)
[2024-11-09 09:38] VITALS: PULSE 64
[2024-11-09] MEDS: METOPROLOL SUCCINATE EXT REL 25 MG TABCR BY MOUTH (09:38)
[2024-11-09] MEDS: levETIRAcetam 500 MG TABLET BY MOUTH (09:38)
[2024-11-09 09:43] LABS: Lactic Acid Reflex 1.5 mmol/L (0.4-2.0)
--- NOTE | 2024-11-09 11:06 | P.SS_ITS ---
Same Day Admit/Disch: HPI History of Present Illness Chief complaint: COUGH/Congestion/N/V Narrative: Malcolm Patel is a 74 year old male with a past medical history of hyperlipidemia hypertension presented to the ER with complaints of cough congestion with nausea vomiting. Patient denied any abdominal pain, chest pain, SOB, fever, or chills. Patient was afebrile and stable O2 sats at 98% on room air. in the emergency department patient was found to be COVID positive and CXR showing possible pneumonia versus atelectasis normal WBC in other labs unremarkable except for hypokalemia at 3.0. Patient was started on IV antibiotics of azithromycin Rocephin as well as IV potassium for replenishment in IV fluids for mild dehydration. Patient was admitted to the medical unit for observation for further evaluation treatment of COVID, pneumonia, dehydration and hypokalemia. [facility]LY [facility] Past Medical History Medical History Abnormal EKG Psoriasis Overweight HTN (hypertension) Seizure disorder Elevated PSA Surgical History Surgical History History of hernia repair Family History Family History Other Family history of malignant neoplasm Social History Social History Smoking packs per day: 2 Smoking cigarettes per day: 40.0 Years smoked: 39 Smoking pack-years: 78.00 Smoking status: Former smoker Tobacco type: cigarettes Smoking end date: 08/29/01 Alcohol intake: former Alcohol use details: Daily Substance use: never Do You Feel Safe in your Home?: Yes Lack of Transportation: No Lack of Food: Never True Current Housing: I Have Housing Concerned About Future Housing: No Difficulty Paying Gas/Electric Bills: No Difficulty Paying for Meds: No Currently Unemployed: No Education: High School Diploma/GED Difficulty w/ Childcare or Family Care: No Living arrangements: with family Occupation/Education: retired 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, 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, 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 Gender identity (if verbalized by the patient): Male Spiritual care concerns: No Same Day Admit/Disch: Med Pre-admit Medications Home Medications ?Medication ?Instructions ?Recorded ?Confirmed ?Type aspirin 81 mg tablet,delayed 81 mg PO DAILY 12/26/23 11/08/24 History release metoprolol succinate 25 mg See Rx Instructions .Route 04/19/24 11/08/24 Rx tablet,extended release 24 hr .COMPLEX #90 tabs atorvastatin 20 mg tablet See Rx Instructions .Route 07/11/24 11/08/24 Rx .COMPLEX #90 tabs levetiracetam 500 mg tablet See Rx Instructions .Route 09/18/24 11/08/24 Rx .COMPLEX #180 tabs gabapentin 100 mg capsule 200 mg (2 x 100 mg) PO TID #360 09/25/24 11/08/24 Rx caps ciclopirox 0.77 % topical gel 1 applic topical BID 4 weeks #30 11/02/24 11/08/24 Rx grams deucravacitinib 6 mg tablet 6 mg PO DAILY 11/02/24 11/08/24 History (Sotyktu) torsemide 100 mg tablet 100 mg PO QAM #90 tabs 11/02/24 11/08/24 Rx triamcinolone acetonide 0.1 % 1 applic topical PRN 11/08/24 11/08/24 History topical cream amoxicillin 875 mg-potassium 1 tablet PO Q12H #8 tabs 11/09/24 Rx clavulanate 125 mg tablet ondansetron 4 mg disintegrating 4 mg PO Q8H PRN nausea and 11/09/24 Rx tablet vomiting #15 tabs potassium chloride 20 mEq 20 meq PO DAILY #30 tabs 11/09/24 Rx tablet,extended release (K-Tab) Review of Systems Review of Systems All systems reviewed & are unremarkable except as noted in HPI and below Exam Const: General: comfortable and no acute distress HENMT: Mouth: Yes moist mucous membranes Eyes: General: appearance normal, both eyes and all related structures Pupils: Equal, round and reactive pupils present Neck: Neck: supple and no JVD Resp: Effort & Inspection: normal respiratory effort Auscultation: diminished lung sounds bilateral Cardio: Rate: regular rate Rhythm: regular rhythm GI: GI Palp: Yes Soft to palpation Auscultation: normal bowel sounds Skin: General skin exam: normal color and no rashes or lesions noted Neuro: General: gait normal Speech: normal speech Motor exam (neuro): 5/5 motor strength present throughout Extrem: General: normal to inspection Psych: Mental Status: mental status grossly normal DS: Data Data Completed and Pending Labs on day of discharge: Labs from last 24 hours 11/09/24 11/08/24 11/08/24 08:37 19:54 18:45 WBC 5.7 6.2 RBC 3.98 L 4.27 L Hgb 12.6 13.5 Hct 39.8 40.9 MCV 100.0 95.8 MCH 31.7 H 31.6 H MCHC 31.7 L 33.0 RDW 13.4 13.3 Plt Count 192 208 MPV 9.0 9.4 Immature Gran % (Auto) 0.4 H 0.2 H Neut % (Auto) 68.8 65.6 Lymph % (Auto) 16.9 L 19.4 [place] % (Auto) 11.6 H 12.4 H Eos % (Auto) 1.8 1.8 Baso % (Auto) 0.5 0.6 Lymph # (Auto) 0.96 L 1.20 [place] # (Auto) 0.66 0.77 Eos # (Auto) 0.10 0.11 Baso # (Auto) 0.03 0.04 Abs Immat Gran (auto) 0.02 H 0.01 H Absolute Neuts (auto) 3.90 4.07 Absolute Nucleated RBC 0.00 0.00 Nucleated RBC % 0.0 0.0 Sodium 143 138 Potassium 3.5 3.0 L Chloride 103 98 Carbon Dioxide 34 H 29 Anion Gap 6 11 BUN 13 14 Creatinine 1.02 1.16 Estim Creat Clear Calc 66 57 Estimated GFR > 60 > 60 Glucose 106 H 129 H Calculated Osmolality 296 H 288 Lactic Acid 1.5 2.2 H 3.1 H Calcium 8.6 8.5 Total Bilirubin 0.7 1.0 AST 21 24 ALT 28 24 Alkaline Phosphatase 139 H 151 H Total Protein 6.9 7.2 Albumin 3.2 L 3.4 Lipase 28 Influenza A (RT-PCR) Negative Influenza B (RT-PCR) Negative RSV (RT-PCR) Negative SARS-CoV-2 RNA (RT-PCR) Positive A Imaging Radiologist's impression: XR chest 1V portable Ordering provider: Roosevelt Stephenson MD History: 74 years Male with . cough and congestion . Comparison: None. FINDINGS: MEDIASTINUM: The cardiac silhouette is not enlarged. LUNGS: No effusions or pneumothorax. Opacification the right lung base medially is seen suggestive of atelectasis versus pneumonia. Calcified granuloma in the right midzone peripherally. OTHER: No free air under the diaphragm. Degenerative changes of the spine. IMPRESSION: Right basilar atelectasis versus pneumonia seen medially. DS: Summary Hospital Course Reason for hospitalization: COVID/ pneumonia/ hypokalemia Hospital Course: Admission: Malcolm Patel is a 74 year old male with a past medical history of hyperlipidemia hypertension presented to the ER with complaints of cough congestion with nausea vomiting. Patient denied any abdominal pain, chest pain, SOB, fever, or chills. Patient was afebrile and stable O2 sats at 98% on room air. in the emergency department patient was found to be COVID positive and C XR showing possible pneumonia versus atelectasis normal WBC in other labs unremarkable except for hypokalemia at 3.0. Patient was started on IV antibiotics of azithromycin Rocephin as well as IV potassium for replenishment in IV fluids for mild dehydration. Patient was admitted to the medical unit for observation for further evaluation treatment of COVID, pneumonia, dehydration and hypokalemia. patient was seen and assessed following day and reported overall improvements to all symptoms denied any further nausea or vomiting and was tolerating oral intake. Patient remained on room air and afebrile with normal WBC hypokalemia had resolved. Patient denied any chest pain, shortness a breath, nausea, vomiting, abdominal pain, fever chills throughout the night. Patient was then discharged to home on oral antibiotic therapy for suspicious pneumonia instructed on supportive care for COVID-19 as well as provided prescription for supplemental potassium daily due to patient's current home diuretic medication with instructions to follow-up with his primary care physician. patient acknowledged and agreed to discharge plan patient discharged home. Status at Discharge Functional status at discharge: independent ambulation Overall status at discharge: patient is back to baseline Time Spent with Patient Time attestation: Total time spent providing and/or coordinating discharge services: Time spent: Greater than 30 minutes DS: Admitting Diagnosis Discharge Date 11/09/2024 Admitting Diagnosis COVID/Pneumonia/Hypokalemia DS: Discharge Diagnosis Discharge Diagnosis (1) HTN (hypertension): Code(s): I10 - Essential (primary) hypertension Status: Acute (2) Acute renal failure: Qualifiers: Acute renal failure type: unspecified Qualified Code(s): N17.9 - Acute kidney failure, unspecified Code(s): N17.9 - Acute kidney failure, unspecified Status: Acute (3) Acute hypokalemia: Code(s): E87.6 - Hypokalemia Status: Acute (4) COVID: Code(s): U07.1 - COVID-19 Status: Acute (5) Pneumonia: Qualifiers: Laterality: right Lung location: unspecified part of lung Pneumonia type: due to unspecified organism Qualified Code(s): J18.9 - Pneumonia, unspecified organism Code(s): J18.9 - Pneumonia, unspecified organism Status: Acute Plan Disposition: Discharge to home Discharge Plan Discharge Attending physician on discharge: Zelalem Moore Consulting providers: Capri Champion Discharging Clinician: Capri Champion Anticipated Discharge Date/Time: 11/09/24 10:55 Patient Disposition: Home, Self-Care Activity: as tolerated Diet: heart healthy Discharge Instructions: COVID/pneumonia: * Supportive care at home symptom management * Acetaminophen for fever and mild pain * I also prescribed Zofran as needed for any nausea * I encouraged hydration * activity as tolerated * continue to use incentive spirometer * your chest x-ray showed suspicion pneumonia I have prescribed oral antibiotic therapy please take as indicated even if feeling better Hypokalemia (Low potassium): * Your potassium was low on admission and has been replenished * I have prescribed a daily potassium supplement daily since you are currently taking a potassium wasting diuretic. How can you care for yourself at home? ? Keep track of any new symptoms or changes in your symptoms. ? Rest until you feel better. ? Be safe with medicines. Take your medicines exactly as prescribed. Call your doctor if you think you are having a problem with your medicine. ? Do not drive after taking a prescription pain medicine. ? Ensure to follow-up with primary care physician as indicated and provide updated medication list provided to you at discharge. When should you call for help? Call 911 anytime you think you may need emergency care. For example, call if: ? You passed out (lost consciousness). Call your doctor now or seek immediate medical care if: ? You have new symptoms like fever, difficulty breathing, Chest pain, vomiting, or rash. ? You have new or different pain. ? You are confused and are having trouble thinking clearly. ? Your symptoms are getting worse. Watch closely for changes in your health, and be sure to contact your doctor if: ? You do not get better as expected. Patient Instructions: Antibiotic Form, Potassium Chloride (By mouth), Amoxicillin/Clavulanate Potassium (By mouth), Ondansetron (By mouth), Hypokalemia (DC), Community Acquired Pneumonia (DC), COVID-19 (Coronavirus Disease 2019) (DC) Patient Language: Danish Stand Alone Forms: General Discharge Information Follow-up/Referrals: Mark Harper DO [Primary Care Provider] - 11/23/24 9:15 am Discharge Medications: New potassium chloride [K-Tab] 20 mEq tablet extended release 20 meq PO DAILY Qty: 30 0RF amoxicillin-pot clavulanate 875-125 mg tablet 1 tablet PO Q12H Qty: 8 0RF ondansetron 4 mg tablet,disintegrating 4 mg PO Q8H PRN (Reason: nausea and vomiting) Qty: 15 0RF Continued triamcinolone acetonide 0.1 % cream 1 applic TOPICAL PRN aspirin 81 mg tablet,delayed release (DR/EC) 81 mg PO DAILY Sotyktu 6 mg tablet 6 mg PO DAILY ciclopirox 0.77 % gel 1 applic topical BID 28 Days Qty: 30 0RF metoprolol succinate 25 mg tablet extended release 24 hr See Rx Instructions .ROUTE .COMPLEX Qty: 90 2RF Dose Instruction: TAKE 1 TABLET BY MOUTH EVERY DAY Rx Instructions: TAKE 1 TABLET BY MOUTH EVERY DAY atorvastatin 20 mg tablet See Rx Instructions .ROUTE .COMPLEX Qty: 90 3RF Dose Instruction: TAKE 1 TABLET BY MOUTH EVERY DAY Rx Instructions: TAKE 1 TABLET BY MOUTH EVERY DAY levetiracetam 500 mg tablet See Rx Instructions .ROUTE .COMPLEX Qty: 180 3RF Dose Instruction: TAKE 1 TABLET BY MOUTH TWICE A DAY Rx Instructions: TAKE 1 TABLET BY MOUTH TWICE A DAY gabapentin 100 mg capsule 200 mg PO TID Qty: 360 0RF torsemide 100 mg tablet 100 mg PO QAM Qty: 90 0RF Date of admission: 11/08/24 19:29 Primary Care Provider: Mark Harper Admitting Provider: Zelalem Moore Attending physician on admission: Zelalem Moore Condition: Stable Quality VTE Prophylaxis VTE prophylaxis: mechanical ordered -Patient's previous records reviewed on admission -ER notes reviewed in detail on admission -discussed all findings and current treatment plan with patient/Family/POA -Consultations reviewed for recommendations -Patient's disposition for safe discharge discussed with child support case officer Dictation performed by [employer] direct speech recognition software, therefore merchant banker variants and typographical errors may occur. Hospitalist MIPS Advance Care Plan I have confirmed that the patient's Advanced Care Plan is present, code status is documented, or surrogate decision maker is listed in patient medical record.: Yes Medication Reconciliation I have utilized all available resources to obtain, update and review the patients current medications (includes all prescriptions, OTC, herbals, cannabis, and nutritional supplements).: Yes The patient is not eligible for med reconciliation; the patient is in a emergent medical situation where delaying treatment would jeopardize the patients he alth.: No Heart Failure (Exclusion) Patient has history of Heart Transplant or Left Ventricular Assistive Device?: No IF YES, STOP HERE Heart Failure (Qualifier) Patient has current or prior documentation of LVEF less than or equal to 40%, or mod/servere depressed LVSF?: No IF NO, STOP HERE
[2024-11-09 11:58] VITALS: PULSE 80
--- NOTE | 2024-11-09 12:30 | PC.NURSE ---
Patient discharging home. IV site removed, tip intact. Dressing applied to site. All belongings gathered together and sent home with patient. All discharge instructions and education reviewed with patient, patient states understanding. here to transport patient home. This nurse accompanied patient to front door via wheelchair, left via private vehicle with .
--- NOTE | 2024-11-12 09:50 | PC.NURSE ---
Called patient to inquire on discharge instructions. No answer. No message left.
--- NOTE | 2024-11-12 14:49 | PC.NURSE ---
2nd call made R/T discharge instructions and stay. Busy signal with 2 attemps.
== END 2024-11-09 12:30 | disposition home or self-care (01) ==
LOC: CHSED 19:26 → CHS2ND 20:26
PROVIDERS: Admitting Provider Internal Medicine; Emergency Provider Emergency Medicine; PCP Family Medicine; Visit Provider Internal Medicine
DX: U07.1 COVID-19 (principal); J18.9 Pneumonia, unspecified organism; E87.6 Hypokalemia; N17.9 Acute kidney failure, unspecified; E86.0 Dehydration; I10 Essential (primary) hypertension; E78.5 Hyperlipidemia, unspecified; L40.9 Psoriasis, unspecified; G40.909 Epilepsy, unspecified, not intractable, without status epilepticus; Z79.82 Long term (current) use of aspirin; Z79.899 Other long term (current) drug therapy; Z87.891 Personal history of nicotine dependence
CPT/HCPCS: 36415; 71045; 80053; 83605; 83690; 85025; 87040; 87637; 93005; 96361; 96365; 96366; 96367; 96375; 99285; A9270; G0378; J0456; J0696; J2405; J2765; J3480; J7030; J7040

== ENCOUNTER 2024-11-23 09:57 | Outpatient (CLI) | payer MEDICARE, SELFPAY ==
[2024-11-23 10:08] LABS: Basophils Absolute Auto 0.05 K/mm3 (0.00-0.10); Basophils Percent Auto 0.7 % (0.0-1.0); Eosinophils Absolute Auto 0.39 K/mm3 (0.02-0.50); Eosinophils Percent Auto 5.6 % (1.0-6.0); Hematocrit 43.9 % (37.0-46.0); Hemoglobin 14.1 g/dL (12.4-15.3); Immature Granulocyte Absolute 0.01 K/mm3 (0.00-0.00); Immature Granulocyte Percent A 0.1 % (0.0-0.0); Lymphocytes Absolute Auto 1.69 K/mm3 (1.10-4.50); Lymphocytes Percent Auto 24.4 % (18.0-42.0); Mean Corpuscular HGB Conc 32.1 g/dL (32-36); Mean Corpuscular Hemoglobin 31.6 pg (27.0-31.0); Mean Corpuscular Volume 98.4 fL (78.0-102.0); Mean Platelet Volume 9.3 fl (8.7-11.0); Monocytes Absolute Auto 0.67 K/mm3 (0.10-0.90); Monocytes Percent Auto 9.7 % (2.0-11.0); Neutrophils Absolute Auto 4.13 K/mm3 (1.70-7.20); Neutrophils Percent Auto 59.5 % (50.0-70.0); Platelet Count Result 298 K/mm3 (150-420); Red Blood Count 4.46 M/mm3 (4.70-6.10); Red Cell Distribution Width 12.9 % (11.6-14.4); White Blood Count 6.9 K/mm3 (4.8-10.8)
--- OUTSIDE RECORDS SUMMARY | 2024-11-23 10:48 | XMS_ITS | Clinical Summary ---
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 Gender Identity Not on file Sexual Orientation Not on file Last Filed Vital Signs Vital Sign Reading Time Taken Comments Blood Pressure 130/78 09/21/2022 12:56 PM DEHYDRATION PLANT OPERATOR Pulse 64 09/21/2022 12:56 PM DEHYDRATION PLANT OPERATOR Temperature 36.3 C (97.3 F) 09/21/2022 12:56 PM DEHYDRATION PLANT OPERATOR Respiratory Rate 18 09/21/2022 12:56 PM DEHYDRATION PLANT OPERATOR Oxygen Saturation 94% 09/21/2022 12:56 PM DEHYDRATION PLANT OPERATOR Inhaled Oxygen Concentration - - Weight 98 kg (216 lb) 2022 9:49 AM DEHYDRATION PLANT OPERATOR Height 177.8 cm (5' 10 ) 07/22/2022 9:49 PM DEHYDRATION PLANT OPERATOR Body Mass Index 30.99 07/22/2022 9:49 PM DEHYDRATION PLANT OPERATOR Plan of Treatment Health Maintenance Due Date [...] and discharge planning Lifestyle No Daily Dean, AIRCRAFT PNEUDRAULIC SYSTEMS MECHANICmanager business systems MEDICARE [employer] Advance Directives * Full Code (Latest Code Status on File) Date Activated Date Inactivated Comments 07/31/2022 5:31 PM * Full Code Date Activated Date Inactivated Comments 07/22/2022 10:01 PM 07/26/2022 5:11 PM Care Teams Supply Room Clerk Relationship Specialty Start Date End Date Kroin Guillen, SUSAN [address] [place] [address] PCP - General NURSE PRACTITIONER 07/22/22
[2024-11-23 10:54] LABS: Alanine Aminotransferase 23 U/L (16-63); Albumin Level 3.7 g/dL (3.4-5.0); Alkaline Phosphatase 159 U/L (46-116); Anion Gap 6 mmol/L (4-12); Aspartate Amino Transferase 20 U/L (15-37); Bilirubin,Total 0.8 mg/dL (0.00-1.00); Blood Urea Nitrogen 11 mg/dL (7-18); Calcium 9.5 mg/dL (8.5-10.1); Carbon Dioxide 35 mmol/L (21-32); Chloride 99 mmol/L (98-108); Estimated Glomerular Filt Rate > 60; Glucose 113 mg/dL (70-99); Osmolality Calculated 290 mOsm/kg (285-295); Potassium 3.8 mmol/L (3.5-5.1); Sodium 140 mmol/L (136-145); Total Protein 7.2 g/dL (6.4-8.2)
== END 2024-11-23 09:58 | disposition home or self-care (01) ==
LOC: CHSLAB 09:59
PROVIDERS: PCP Family Medicine; Visit Provider Family Medicine
DX: D64.9 Anemia, unspecified (principal); E87.6 Hypokalemia
CPT/HCPCS: 36415; 80053; 85025

== ENCOUNTER 2025-03-23 09:44 | Outpatient (CLI) | payer MEDICARE, SELFPAY ==
--- OUTSIDE RECORDS SUMMARY | 2025-03-23 09:50 | XMS_ITS | Clinical Summary ---
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99 07/22/2022 9:49 PM BRAKE LININGS COATER Plan of Treatment Health Maintenance Due Date Last Done Comments Colorectal Cancer Screening Colonoscopy (10 Years) 1949 Hepatitis C 1967 DTaP, Tdap and Td Vaccines ( 1 - Tdap) 1968 Pneumococcal Vaccine: 50+ Years (1 of 2 - PCV) 1968 Zoster Vaccines (1 of 2) 1999 Annual Medicare Wellness Visit 2014 COVID-19 Vaccine (2023-2 5 season) 2024 09/09/2021, 12/19/2020, 11/21/2020 RSV Immunization or 60+ Years (1 - [...] and discharge planning Lifestyle No Daily 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
[2025-03-23 09:59] LABS: Hematocrit 41.9 % (37.0-46.0); Hemoglobin 13.8 g/dL (12.4-15.3); Mean Corpuscular HGB Conc 32.9 g/dL (32-36); Mean Corpuscular Hemoglobin 32.5 pg (27.0-31.0); Mean Corpuscular Volume 98.8 fL (78.0-102.0); Platelet Count Result 298 K/mm3 (150-420); Red Blood Count 4.24 M/mm3 (4.70-6.10); White Blood Count 6.5 K/mm3 (4.8-10.8)
[2025-03-23 10:11] LABS: Alanine Aminotransferase 18 U/L (6-50); Albumin Level 4.3 g/dL (3.5-5.1); Alkaline Phosphatase 131 U/L (38-126); Anion Gap 4 mmol/L (4-12); Aspartate Amino Transferase 31 U/L (17-59); Bilirubin,Total 1.1 mg/dL (0.2-1.3); Blood Urea Nitrogen 16 mg/dL (9-20); Calcium 9.2 mg/dL (8.4-10.2); Carbon Dioxide 38 mmol/L (22-30); Chloride 98 mmol/L (98-107); Cholesterol 144 mg/dL (0-200); Estimated Glomerular Filt Rate > 60; Glucose 112 mg/dL (65-110); HDL Direct 33 mg/dL; Osmolality Calculated 292 mOsm/kg (285-295); Potassium 3.2 mmol/L (3.4-5.0); Sodium 140 mmol/L (137-145); Total Protein 7.6 g/dL (6.3-8.2); Triglycerides 158 mg/dL (<150)
== END 2025-03-23 09:45 | disposition home or self-care (01) ==
PROVIDERS: PCP Family Medicine
DX: L40.0 Psoriasis vulgaris (principal)
CPT/HCPCS: 36415; 80053; 80061; 85027

== ENCOUNTER 2025-05-22 16:40 | Outpatient (CLI) | payer MEDICARE, SELFPAY ==
[2025-05-22 17:35] LABS: Alanine Aminotransferase 17 U/L (6-50); Albumin Level 4.7 g/dL (3.5-5.1); Alkaline Phosphatase 126 U/L (38-126); Anion Gap 9 mmol/L (4-12); Aspartate Amino Transferase 30 U/L (17-59); Bilirubin,Total 0.8 mg/dL (0.2-1.3); Blood Urea Nitrogen 13 mg/dL (9-20); Calcium 9.6 mg/dL (8.4-10.2); Carbon Dioxide 35 mmol/L (22-30); Chloride 99 mmol/L (98-107); Estimated Glomerular Filt Rate > 60; Glucose 99 mg/dL (65-110); Osmolality Calculated 296 mOsm/kg (285-295); Potassium 3.7 mmol/L (3.4-5.0); Sodium 143 mmol/L (137-145); Total Protein 9.1 g/dL (6.3-8.2)
[2025-05-22 18:06] LABS: Prostate Specific Antigen < 0.1 ng/mL (< OR = 4.0)
== END 2025-05-22 16:41 | disposition home or self-care (01) ==
LOC: CHSLAB 16:43
PROVIDERS: PCP Family Medicine
DX: C61 Malignant neoplasm of prostate (principal)
CPT/HCPCS: 36415; 80053; 84153